=== PATIENT | male | born 1945 | race Caucasian/White ===

== ENCOUNTER 2019-11-29 08:25 | Outpatient (CLI) | payer BC, SELFPAY ==
--- NOTE | ~2019-11-29 | US_ITS ---
EXAMINATION:US venous doppler LE LT INDICATION:Left leg pain TECHNIQUE: Multiple grayscale, color flow and Doppler images of the left lower extremity deep venous systems were obtained and reviewed. COMPARISON:No prior studies for comparison. FINDINGS: The common femoral, superficial femoral and popliteal veins demonstrate normal respiratory variation, augmentation and compressibility. Color flow is also seen within the posterior tibial, pe roneal, greater saphenous and profunda veins. IMPRESSION: 1: No lower extremity deep venous thrombosis. Reviewed, dictated and finalized at location A.
[2019-11-29 09:00] LABS: Alanine Aminotransferase 14 U/L (4-50); Albumin Level 4.3 g/dL (3.5-5.1); Alkaline Phosphatase 56 U/L (38-126); Aspartate Amino Transferase 26 U/L (17-59); Bilirubin,Total 0.4 mg/dL (0.2-1.3); Blood Urea Nitrogen 16 mg/dL (9-20); Calcium 8.9 mg/dL (8.4-10.2); Carbon Dioxide 27 mmol/L (22-30); Chloride 105 mmol/L (98-107); Cholesterol 149 mg/dL (0-200); Estimated Glomerular Filt Rate > 60; Glucose 99 mg/dL (75-110); HDL Direct 38 mg/dL; Potassium 4.4 mmol/L (3.4-5.0); Sodium 139 mmol/L (137-145); Triglycerides 217 mg/dL (<150)
[2019-11-29 09:11] LABS: LDL Cholesterol Direct 73 mg/dL
[2019-11-29 09:30] LABS: Prostate Specific Antigen 0.8 ng/mL (< OR = 4.0)
== END 2019-11-29 08:26 | disposition home or self-care (01) ==
PROVIDERS: PCP Family Medicine; Visit Provider Family Medicine
DX: M79.662 Pain in left lower leg (principal); E78.00 Pure hypercholesterolemia, unspecified; Z12.5 Encounter for screening for malignant neoplasm of prostate
CPT/HCPCS: 36415; 80053; 80061; 84153; 93971; G0103

== ENCOUNTER 2019-12-01 08:05 | Outpatient (CLI) | payer BC, SELFPAY ==
--- NOTE | ~2019-12-01 | US_ITS ---
EXAMINATION: US art doppler w press LE BI DATE: 12/01/2019 09:03 INDICATION: Decreased pulses in the lower limbs. TECHNIQUE: Segmental pressures and plethysmographic and Doppler waveforms of the brachial and lower e xtremity arteries were obtained. COMPARISON: None. FINDINGS: Right and left brachial artery pressures of 160 mm Hg and 161 mm Hg, respectively, are concordant (no rmal difference <= 30 mmHg). The left high-thigh pressure index is 0.86 (normal > 1.2). The right hig h thigh pressure index is unable to be obtained due to inability to occlude the vessels. The right ankle-brachial index (ALEX) is 0.66 (normal >= 0.9-1). The right great toe-brachial index (T BI) is 0.35 (normal >= 0.6-0.8). The right lower extremity segmental pressure gradients are significa ntly increased between the right dorsalis pedis artery and the right xetel-ywm-rqhb popliteal artery (normal gradients <= 20-30 mmHg between adjacent levels on the same leg or the same levels on the two legs). Arterial waveforms are biphasic with brisk systolic upstrokes throughout. The left ALEX is 0.35. No discernible arterial Doppler signal at the left great toe. The left lower ex tremity segmental pressure gradients are increased between the left wmcgh-gvw-ukxu popliteal artery a nd the high left thigh as well as the contralateral uvvzc-bnw-hyug right popliteal artery. Arterial w aveforms are biphasic with brisk systolic upstrokes at the left common femoral artery. Waveforms in t he more distal arteries of the left lower limb are biphasic but with delayed upstrokes with broadened systolic peaks. IMPRESSION: 1. Bilateral arterial occlusive disease with moderately decreased right and severely decreased left A BIs and no discernible pulse at the left great toe. Reviewed, dictated and finalized at location A. IMPRESSION: 1. Bilateral arterial occlusive disease with moderately decreased right and sev erely decreased left ABIs and no discernible pulse at the left great toe.
== END 2019-12-01 08:06 | disposition home or self-care (01) ==
PROVIDERS: PCP Family Medicine; Visit Provider Family Medicine
DX: R09.89 Other specified symptoms and signs involving the circulatory and respiratory systems (principal); I77.9 Disorder of arteries and arterioles, unspecified
CPT/HCPCS: 93923

== ENCOUNTER 2023-01-05 09:10 | Outpatient (CLI) | payer BC, SELFPAY ==
[2023-01-05 10:20] LABS: Alanine Aminotransferase 29 U/L (6-50); Albumin Level 4.4 g/dL (3.5-5.1); Alkaline Phosphatase 55 U/L (38-126); Aspartate Amino Transferase 43 U/L (17-59); Bilirubin,Total 0.5 mg/dL (0.2-1.3)
== END 2023-01-05 09:11 | disposition home or self-care (01) ==
PROVIDERS: PCP Family Medicine
DX: B35.1 Tinea unguium (principal)
CPT/HCPCS: 36415; 80076

== ENCOUNTER 2024-11-01 07:42 | Emergency (ER) | payer BC, SELFPAY ==
--- NOTE | ~2024-11-01 | CT_ITS ---
EXAMINATION: 1. CT facial & cervical spine wo DATE: 11/01/2024 08:53 INDICATION: Fall with head injury and left periorbital bruising TECHNIQUE: 1. Computed tomography (CT) of the maxillofacial region and of the cervical spine were performed with out intravenous contrast. Sagittal and coronal reconstructions of both regions were obtained. Automat ed exposure control and iterative reconstruction technique were employed. The dose-length product was 493.76 mGy-cm. COMPARISON: None. FINDINGS: Maxillofacial CT: Mild left periorbital and preseptal soft tissue swelling consistent with reported contusion. Bilatera l globes appear intact with intraocular lens replacement. Orbits are otherwise normal with no post se ptal inflammatory thinning at the left orbit. No maxillofacial fractures. Specifically the mandible, nasal bones, zygomatic arches and banuelos of the orbits and paranasal sinuses are all intact. Paranasal sinuses, mastoid air cells and middle ear cavities are clear. There is some cerumen at the right ext ernal auditory canal. There is mild rightward bowing of the nasal septum which follows the contours o f the turbinates and is without evident acute fracture. Cervical spine CT: Straightening of the normal cervical lordosis. There is anterior fusion at C4-C6. Unfused vertebral b rika heights are normal. Moderate to severe disc height loss at C6-C7. Mild disc height loss at C2-C3, C3-C4 and C7-T1. Hypertrophic posterior endplate osteophytes contribute to mild to moderate central canal stenosis at C5-C6 and mild central canal stenosis at C4-C5 and C6-C7. Bilateral uncovertebral o steoarthritis, mild at C2-C3 and C3-C4, severe at C6-C7 and with hypertrophic changes and secondary f usion at C4-C5 and C5-C6. Severe facet osteoarthritis on the right at C2-C3, bilaterally at C7-T1 and on the left at T1-T2. Mild to moderate facet osteoarthritis at the remaining cervical levels. This c ontributes to moderate neural foraminal stenosis on the right at C5-C6 and bilaterally at C4-C5 and C 6-C7. Mild stenosis of the remaining cervical neural foramina. Atherosclerotic calcifications at the bilateral carotid bulbs. Cervical soft tissues are otherwise unremarkable. Mild to moderate emphysema at the visualized apices of the lungs. IMPRESSION: 1. No maxillofacial fracture. 2. Severe cervical spondylosis with anterior fusion at C4-C6. No acute osseous abnormality. 2. Mild to moderate emphysema at the apices of the lungs. Reviewed, dictated and finalized at location B.
--- NOTE | ~2024-11-01 | CT_ITS ---
CT head without contrast Indication: Status post fall Technique: Serial scans were obtained through the brain without the administration of contrast. Dose reduction technique was used on this scan by utilizing automated exposure control and iterative recon struction technique. The dose-length product (DLP) was 605.33 mGy-cm. Findings: There is no evidence of intracranial hemorrhage, mass lesion, or acute infarct. The ventri cles and subarachnoid spaces are dilated, consistent with mild to moderate atrophy. Low attenuation regions are seen within the periventricular white matter bilaterally, likely representing changes fro m chronic microvascular ischemic disease. There is no evidence of edema, mass effect or midline shif t. The visualized paranasal sinuses and mastoid air cells are clear. Impression: No intracranial hemorrhage, mass, or acute infarct. Atrophy and chronic white matter changes, as above. Reviewed, dictated and finalized at location M. Impression: No intracranial hemorrhage, mass, or acute infarct. Atrophy and chronic white matter changes, as above.
[2024-11-01 07:44] VITALS: BP 190/89; PULSE 93; RESP 18; O2SAT 99
--- NOTE | 2024-11-01 08:11 | ED.FALL ---
- Fall General Chief Complaint: Alcohol Stated Complaint: ETOH, falling Time Seen by Provider: 11/01/24 07:47 Source: patient Related Data Allergies Allergy/AdvReac Type Severity Reaction Status Date / Time Penicillins Allergy Unknown RASH Verified 11/01/24 08:11 Course Vital Signs Vital signs: Vital Signs Pulse Rate 93 11/01/24 07:44 Respiratory Rate 18 11/01/24 07:44 Blood Pressure 190/89 H 11/01/24 07:44 Pulse Oximetry 99 11/01/24 07:44 Oxygen Delivery Room Air 11/01/24 07:44 Pulse Rate 88 11/01/24 09:37 Respiratory Rate 13 11/01/24 09:37 Blood Pressure 137/79 11/01/24 09:37 Pulse Oximetry 97 11/01/24 09:37 Oxygen Delivery Room Air 11/01/24 07:44 MDM - Fall Lab Data 11/01/24 09:03 11/01/24 09:03 Labs: Lab Results 11/01/24 Range/Units 09:03 WBC 13.6 H (4.5-10.0) K/mm3 RBC 4.43 L (4.6-6.20) M/mm3 Hgb 12.4 L (14.0-18.0) g/dL Hct 38.8 L (42.0-52.0) % MCV 87.6 (80-100) fl MCH 28.0 (26-34) pg MCHC 32.0 (32-36) g/dl RDW 15.1 H (11.5-14.5) % Plt Count 269 (150-375) k/mm3 MPV 9.6 (7.4-10.4) fl Immature Gran % (Auto) 0.4 (0-0.5) % Neut % (Auto) 77.6 H (45.5-73.1) % Lymph % (Auto) 10.7 L (18.3-44.2) % [place] % (Auto) 10.9 H (2.6-8.5) % Eos % (Auto) 0.0 (0-4.4) % Baso % (Auto) 0.4 (0.2-1.2) % Lymph # (Auto) 1.46 (0.9-3.2) K/mm3 [place] # (Auto) 1.5 H (0.1-0.6) K/mm3 Eos # (Auto) 0.0 (0-0.3) K/mm3 Baso # (Auto) 0.1 (0.0-0.1) K/mm3 Abs Immat Gran (auto) 0.06 H (0.00-0.031) K/mm3 Absolute Neuts (auto) 10.6 H (1.3-6.7) K/mm3 Absolute Nucleated RBC 0.000 (0.0-0.012) K/mm3 Nucleated RBC % 0.0 (0.0-0.2) % PT 13.4 (11.1-14.7) Seconds INR 1.0 Sodium 139 (137-145) mmol/L Potassium 3.8 (3.4-5.0) mmol/L Chloride 99 (98-107) mmol/L Carbon Dioxide 23 (22-30) mmol/L Anion Gap 17 H (4-12) mmol/L BUN 22 H (9-20) mg/dL Creatinine 1.14 (0.7-1.3) mg/dL Estim Creat Clear Calc 45 ml/min Estimated GFR > 60 (59 - ) Glucose 106 (65-110) mg/dL Calcium 8.6 (8.4-10.2) mg/dL Total Bilirubin 0.7 (0.2-1.3) mg/dL AST 206 H (17-59) U/L ALT 96 H (6-50) U/L Alkaline Phosphatase 70 (38-126) U/L Total Protein 8.0 (6.3-8.2) g/dL Albumin 4.8 (3.5-5.1) g/dL Ethyl Alcohol 169 (<10) mg/dL Imaging Data Radiologist's impression: Impressions Head CT 11/01/24 08:58 Impression: No intracranial hemorrhage, mass, or acute infarct. Atrophy and chronic white matter changes, as above. Head/Cervical Spine/Facial Bones CT 11/01/24 09:00 IMPRESSION: 1. No maxillofacial fracture. 2. Severe cervical spondylosis with anterior fusion at C4-C6. No acute osseous abnormality. 2. Mild to moderate emphysema at the apices of the lungs. Discharge Plan Discharge Clinical Impression: Contusion of face, Closed head injury, Alcoholic, Elevated liver enzymes Patient Disposition: Home Condition: Stable Instructions: Antibiotic Form, Head Injury (DC), Abuse of Alcohol (DC), Facial Contusion (ED), Alcoholic Hepatitis (ED) Additional Instructions: Return if symptoms are worsening , call your family physician for appointment, continue home medications. Outpatient alcohol rehab at [facility] Patient Language: Japanese Follow-up/Referrals: Chato,Williams Woodard MD [Physician] -
[2024-11-01] MEDS: LORazepam INJ (*CRX) 2 MG/ML VIAL 1 MG IV PUSH (08:17)
[2024-11-01 08:24] VITALS: BP 129/93
--- NOTE | 2024-11-01 08:36 | ECG_ITS ---
Test Date: 2024-11-01 09:11:59 Measurements Intervals Golden Rate: 87 P: 61 IN: 141 QRS: -12 QRSD: 94 T: 52 QT: 358 QTc: 433 Interpretive Statements SINUS RHYTHM INCOMPLETE RIGHT BUNDLE BRANCH BLOCK BORDERLINE ECG No previous ECG available for comparison Electronically Signed On 11-01-2024 09:24:37 CDT by Dane Thompson D.O.
--- OUTSIDE RECORDS SUMMARY | 2024-11-01 09:03 | XMS_ITS | Clinical Summary ---
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 Use as directed by the office for colonoscopy prep. 255 g 7 Active Immunizations Immunization Administration Dates Next Due Covid-19, Mrna, Lnp-s, Pf, 30 Mcg/0.3 Ml Dose (P fizer) 10/18/2020,09/27/2020 Social History Tobacco Use Types Packs/Day Years Used Date Smoking Tobacco: Never Assessed Sex and Gender Information Value Date Recorded Sex Assigned at Not on file Legal Sex Male 9:46 AM CDT Gender Identity Not on file Sexual Orientation Not on file Plan of Treatment Health Maintenance Due Date Last Done Comments Hepatitis C Virus (HCV) Screening 1945 TdaP Immunization 1945 Pneumococcal Immunization (5 0+ years) (1 of 1 - PCV) 1997 Zoster Immunization (1 of 2) 1997 Respiratory Syncytial Virus (RSV) Immunization (Adult) (1 - 1-dose 75+ series) 2022 Influenza Immunization (#1) 2024 SARS-COV-2 Immunization ( season) 2024 10/18/2020, 09/27/2020 Colonoscopy High Risk Discontinued 11/15/2017 Colonoscopy Discontinued 11/15/2017 Colorectal Cancer Screening Discontinued Cologuard Discontinued Hepatitis B Immunization Aged Out No longer eligible based on patient's age to complete this topic Immunochemical Fecal Occult Blood Discontinued Meningococcal Immunization (ACWY) Aged Out No longer eligible based on patient's age to complete this topic Rotavirus Immunization Aged Out No lo nger eligible based on patient's age to complete this topic Procedures Procedure Name Priority Date/Time Associated Diagnosis Comments COLONOSCOPY Routine 11/15/2017 from Last 3 Months or Most Recently Relevant to Health Maintenance Results * COLONOSCOPY (11/15/2017) Kadeem Pena DO PROCEDURE/MINOR SURGICAL ORDERA BLES Final Result from Last 3 Months or Most Recently Relevant to Health Maintenance Insurance Care Teams Artillery Maintenance Supervisor Relationship Specialty Start Date End Date Williams Dougherty MD [address] [place] [id number] PCP - General Family Medicine 05/06/17 Kadeem Pena DO [address] [place] [id number] Consulting Physician Gastroenterology 11/15/17
--- OUTSIDE RECORDS SUMMARY | 2024-11-01 09:03 | XMS_ITS | Clinical Summary ---
Author Organization [facility] [address] Address [address] [place] [address] Care Team Providers Care Organ Pipe Finisher Name Role Phone Wellington Wong MD, Mavis Bishop Unavailable Raven Steiner MD Primary Care Provider Allergies Active Allergy Reactions Criticality Noted Date Comments Penicillin G Itching Low 12/21/2019 Medications aspirin 81 mg enteric coated tablet Take 1 tablet (81 mg total) by mouth daily 30 tablet 11 06/27/20 21 Active rOPINIRole (REQUIP) 0.25 mg tablet TAKE 1 TABLET BY MOUTH NIGHTLY FOR 2 NIGHTS, THEN INCREASE TO 1 TABLET(0.25 MG) BY MOUTH TWICE DAILY THEREAFTER 180 tablet 3 03/06/20 24 Active lansoprazole (PREVACID) 15 mg capsule TAKE 1 CAPSULE(15 MG) BY MOUTH DAILY 90 capsule 1 04/13/20 24 Active rosuvastatin (CRESTOR) 20 mg tablet Take 1 tablet (20 mg total) by mouth daily 90 tablet 1 09/13/19 25 Active rivaroxaban (XARELTO) 2.5 mg tabletIndicatio ns:Encounter for surgical aftercare following surgery on the circulatory system Take 1 tablet (2.5 mg total) by mouth 2 (two) times a day 180 tablet 3 09/15/19 25 026 Active zolpidem (AMBIEN) 5 mg tabletIndicatio ns:Sleep-Onset Insomnia Take 1 tablet (5 mg total) by mouth nightly as needed for sleep 30 tablet 2 10/19/19 25 025 Active traZODone (DESYREL) 50 mg tablet TAKE 1 TO 2 TABLETS(50 TO 100 MG) BY MOUTH EVERY NIGHT NEEDED FOR SLEEP 100 tablet 1 10/22/19 25 Active predniSONE (DELTASONE) 10 mg tablet 4 tabs x 3 days, 3 tabs x 3 days, 2 tabs x 3 days, 1 tab x 3 days 30 tablet 03/16/20 24 025 Discontinued traZODone (DESYREL) 50 mg tablet Take 1-2 tablets (50-100 mg total) by mouth nightly as needed for sleep 90 tablet 4 03/16/20 24 025 Discontinued traMADoL (ULTRAM) 50 mg tablet Take 1 tablet (50 mg total) by mouth every 6 (six) hours as needed for pain for up to 5 days 20 tablet 03/24/20 24 025 Discontinued ALPRAZolam (XANAX) 0.5 mg tablet TAKE 1 TABLET(0.5 MG) BY MOUTH EVERY NIGHT NEEDED FOR ANXIETY OR SLEEP 15 tablet 1 09/13/19 25 025 Discontinued Active Problems Problem Noted Date Diagnosed Date Atherosclerosis of [place] ar romi of left lower extremity with intermittent claudication 10/27/2024 Adjustment insomnia 10/19/2024 Alcohol use 10/19/2024 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 Right SFA stent widely patent. Left SFA stent with mild InStent stenosis, overall clinically doing well. Continue ASA, Xarelto, and statin therapy. Follow up in 6 months with repeat noninvasives testing. Assessment & Plan (03/03/2024 2:34 PM CDT): Overall stable PVD. Continue risk factor modification with ASA statin therapy. Follow up in 6 months with repeat noninvasives. Essential hypertension 11/05/2020 Hyperlipidemia 11/05/2020 Assessment & Plan (09/11/2024 10:48 AM CYBER INCIDENT HANDLER): Stable continue Crestor Assessment & Plan (03/03/2024 2:34 PM CDT): Stable continue Crestor 20 mg. Gastroesophageal reflux disease without esophagi tis 11/05/2020 Atherosclerosis of [place] ar romi of both lower extremities with intermittent claudication 12/21/2019 Overview (12/21/2019): Added automatically from request for surgery [id number] Assessment & Plan (10/27/2024 1:46 PM CDT): Current lower extremity arterial duplex 10/24/2024 shows InStent stenosis of the left SFA stent will need to have an angiogram with potential intervention. Discussed plan with the patient answered all questions at this time and discussed procedure with all of its potential risks. He is agreeable and wishes to proceed. Assessment & Plan (12/14/2023 12:41 PM CDT): Intermittent claudication to the left calf with previous interventions to both lower extremities. Denies any rest pain or ischemic ulcerations. Follow up in the next couple of weeks CTA abdomen and pelvis with iliofemoral runoff Resolved Problems Problem Noted Date Diagnosed Date Resolved Date Open wound of foot, right, sequela 06/06/2021 11/25/2021 Overview (06/06/2021): Added automatically from request for surgery [id number] Encounter for surgical after care following surgery of circulatory system 10/30/2020 11/25/2021 Encounters Date Type Department Care Team Description 10/27/2024 Documentation [facility] Vascular and Vein Surgery [address] [place] [address] Asha Cardona MA 10/25/2024 8:45 AM CDT Office Visit [facility] Vascular at [address] [place] [address] Juany Vicente NP Mixed hyperlipidemia (Primary Dx); Essential hypertension; Atherosclerosis of [place] artery of both lower extremities with intermittent claudication 10/24/2024 10:35 AM CDT - 10/24/2024 11:59 PM CDT Hospital Encounter [facility] Medical Office Building [address] [place] [address] [address] [place] [address] Atherosclerosis of [place] artery of both lower extremities with intermittent claudication Discharge Disposition: Discharge to home or self care 10/24/2024 10:35 AM CDT - 10/24/2024 11:59 PM CDT Hospital Encounter [facility] [address] [place] [address] [address] [place] [address] Atherosclerosis of [place] artery of both lower extremities with intermittent claudication; Other specified symptoms and signs involving the circulatory and respiratory systems Discharge Disposition: Discharge to home or self care 10/24/2024 10:35 AM CDT - 10/24/2024 11:59 PM CDT Hospital Encounter [facility] Building [address] [place] [address] [address] [place] [address] Atherosclerosis of [place] artery of both lower extremities with intermittent claudication Discharge Disposition: Discharge to home or self care 10/24/2024 Orders Only [facility] Vascular and Vein Surgery [address] [place] [address] [address] [place] [address] Lenka Steiner MD Atherosclerosis of [place] artery of both lower extremities with intermittent claudication (Primary Dx); Other specified symptoms and signs involving the circulatory and respiratory systems 10/18/2024 2:30 PM CDT Office Visit [facility] Primary Care [address] [place] [phone] Ce Cast NP Adjustment insomnia (Primary Dx); Alcohol use; Weight loss 10/09/2024 Telephone [facility] Primary [facility] [address] [place] [phone] Raven Steiner MD Med Refill 09/06/2024 9:30 AM CYBER INCIDENT HANDLER Office Visit [facility] Group Vascular at [address] [place] [address] Lenka Steiner MD Peripheral vascular disease (Primary Dx); Mixed hyperlipidemia 09/06/2024 Orders Only [facility] Vascular at [address] [place] [address] Lenka Steiner MD Atherosclerosis of [place] artery of both lower extremities with intermittent claudication (Primary Dx) 09/06/2024 Orders Only [facility] Vascular at [address] [place] [phone] Lenka Steiner MD Atherosclerosis of [place] artery of both lower extremities with intermittent claudication (Primary Dx) 08/30/2024 9:00 AM CYBER INCIDENT HANDLER Ancillary Procedure [facility] Vascular and Vein Surgery at [address] [address] Peripheral vascular disease; Other specified symptoms and signs involving the circulatory and respiratory systems 08/30/2024 9:00 AM CYBER INCIDENT HANDLER Ancillary Procedure [facility] Vascular and Vein Surgery at [address] [address] Atherosclerosis of [place] artery of both lower extremities with intermittent claudication 08/30/2024 8:00 AM CYBER INCIDENT HANDLER Ancillary Procedure [facility] Vascular and Vein Surgery at [address] [phone] Peripheral vascular disease from Last 3 Months Immunizations Immunization Administration Dates Next Due Influenza, Quad, Adjuvantated, Intramuscular ,06/03/2022 Influenza, Quadrivalent, Hig h Dose, Preservative Free, Intrr 05/01/2021 Influenza, Trivalent, Adjuvanted, Intramuscular 04/05/2024 Vizsafe SARS-CoV-2 Monovalent Vaccination (12+ Yrs) PURPLE 10/08/2020,09/17/2020 Pneumococcal Conjugate PCV 13 06/01/2019 Pneumococcal Polysaccharide PPV23 11/12/2020 ZOSTER Recombinant 04/05/2024,06/03/2022 Surgical History Surgery Date Site/Laterality Comments ANGIOPLASTY 12/02/2020 Left iliac stent ANGIOPLASTY 12/25/2019 - 01/23/2020 Left left common and superficial femoral angioplasty and stent, L iliac stent also COLONOSCOPY ? couple Medical History Medical History Date Comments Hypertension Hyperlipidemia GERD (gastroesophageal reflux disease) H/O angioplasty Family History Medical History Relation Name Comments Heart disease Father Asthma Mother Emphysema Sister 2 Relation Name Status Comments Father Mother Sister 1 Alive Sister 2 Social History Tobacco Use Types Packs/Day Years Used Date Smoking Tobacco: Former Cigarettes 2 30 1 973 - 1991 Smokeless Tobacco: Never Tobacco Cessation:Counseling Given: Not Answered Alcohol Use Standard Drinks/Week Comments Never 0 (1 standard drink = 0.6 oz pur e alcohol) AUDIT-C Answer Date Recorded Q1: How often do you have a drink containing alc ohol? Never 06/27/2021 Average Number of Drinks Not on file 021 Q3: How often do you have si x or more drinks on one occasion? Never 06/27/2021 PHQ-2 Answer Date Recorded PHQ-2 Total Score (If total score is 3 or more points, staff should administer the PHQ-9) 0 10/18/2024 Sex and Gender Information Value Date Recorded Sex Assigned at Not on file Legal Sex Male 10:30 AM CDT Gender Identity Not on file Sexual Orientation Not on file Obstetrics History Last Filed Vital Signs Vital Sign Reading Time Taken Comments Blood Pressure 149/92 10/25/2024 8:45 AM CDT Pulse 78 10/25/2024 8:45 AM CDT Temperature 36.7 C (98.1 F) 10/18/2024 2:02 PM CDT Respiratory Rate 18 06/27/2021 6:55 PM CYBER INCIDENT HANDLER Oxygen Saturation 96% 10/25/2024 8:45 AM CDT Inhaled Oxygen Concentration - - Weight 79.4 kg (175 lb) 10/25/2024 8:45 AM CDT Height 170.2 cm (5' 7 ) 10/25/2024 8:45 AM CDT Body Mass Index 27.41 10/25/2024 8:45 AM CDT Plan of Treatment Upcoming Encounters Date Type Department Care Team (Latest Contact Info) Description 11/02/2024 9:30 AM CDT Hospital Encounter [facility] Supervisor [address] [place] [address] Lenka Steiner MD [facility] [place] [address] Atherosclerosis of [place] artery of left lower extremity with intermittent claudication 11/02/2024 9:30 AM CDT - 11/02/2024 10:30 AM CDT Surgery [facility] Supervisor [address] [place] [address] Lenka Steiner MD [address] [place] [address] LEFT LOWER EXTREMITY ANGIOGRAM WITH POSSIBLE INTERVENTION Health Maintenance Due Date Last Done Comments DTaP/Tdap/Td Vaccine (1 - Tdap) 1956 Hepatitis B Screening 1965 Well Visit 65+ 03/11/2024 03/11/2023, 05/28/2021 Covid-19 Vaccine (4 - 2023-2 5 season) 2024 05/21/2021, 10/08/2020, 09/17/2020 Depression Screening 10/18/2025 10/18/2024, 03/16/2024, 09/20/2023, Additional history exists Fall Risk Assessment 10/18/2025 10/18/2024, 03/11/2023, 06/27/2021, Additional history exists Colon Cancer Screening-CT Colonography Discontinued 11/15/2017 Colon Cancer Screening-Colonoscopy Discontinued 11/15/2017 Colon Cancer Screening-DNA Stool Discontinued 11/16/19 Colon Cancer Screening-FIT Discontinued 11/15/2017 Colon Cancer Screening-FOBT Discontinued 11/15/2017 Colon Cancer Screening-Sigmoidoscopy Discontinued 11/15/2017 Colorectal Cancer Screening Discontinued Pneumococcal vaccine 65+ Completed 11/12/2020, 01/2019 Hepatitis C Screening Completed 03/11/2023 Abdominal Aortic Aneurysm (A AA) Screen Completed 02/23/2024, 11/01/2020, 12/21/2019, Additional history exists Influenza Vaccine Completed 04/05/2024, , 06/03/2022, Additional history exists Zoster Vaccine Completed 04/05/2024, 06/03/2022 Medical Devices Implanted Type Area Production Broacher Device Identifier Shelf Expiration Date Model / Serial / Lot [employer] Inc [id number] Zilver Ptx 6mm 100mm 125cm Otw Preload Delivery System Self - S00 - [id number] Implanted:Qty: 1 on 12/29/2019 by Mavis Paris Jr., MD at [facility] Stent Left: Femoral [employer] - [employer] [id number] 08/01/2021 [id number] / 00 / [id number] [employer] Syed [id number] Express Ld Tandem Architecture 7mm 57mm 75cm Otw Radiopaque - S00 - [id number] Implanted:Qty: 1 on 12/29/2019 by Mavis Paris Jr., MD at [facility] Stent Left: Femoral [place] [employer] Syed [id number] 07/13/2021 [id number] / 00 / [id number] Medtronic Inc [id number] Everflex 8mm 60mm 80cm 3 Wave Peak Self Expand Flexible Spiral - [id number] Implanted:Qty: 1 on 12/02/2020 by Abhilash Hernandez MD at [facility] Stent Left: Iliac Medtronic Inc 08/09/2022 [id number] / / [id number] Description:Left external il iac Medtronic Inc Everflex Entrust 6mm 120mm 120cm Self Expand Triaxial Low Profile - [id number] Implanted:Qty: 1 on 06/27/2021 by Abhilash Hernandez MD at [facility] Stent Medtronic Inc 09/05/2023 [id number] 120-120 / / [id number] Procedures Procedure Name Priority Date/Time Associated Diagnosis Comments US DUPLEX SCAN AORTA, IVC ILIAC LIMITED Schedule Routine, Read Routine (OP Routine) 10/24/2024 3:12 PM CDT Atherosclerosis of [place] artery of both lower extremities with intermittent claudication Other specified symptoms and signs involving the circulatory and respiratory systems US ARTERIAL DUPLEX LOWER EXTREMITY LEFT LIMITED Schedule Routine, Read Routine (OP Routine) 10/24/2024 1:19 PM CDT Atherosclerosis of [place] artery of both lower extremities with intermittent claudication US ALEX Schedule Routine, Read Routine (OP Routine) 10/24/2024 1:09 PM CDT Atherosclerosis of [place] artery of both lower extremities with intermittent claudication US DUPLEX SCAN AORTA, IVC ILIAC COMPLETE Schedule Routine, Read Routine (OP Routine) 08/30/2024 9:38 AM CYBER INCIDENT HANDLER Peripheral vascular disease Other specified symptoms and signs involving the circulatory and respiratory systems VL US ARTERIAL DUPLEX LOWER EXTREMITY BILATERAL Schedule Routine, Read Routine (OP Routine) 08/30/2024 9:37 AM CYBER INCIDENT HANDLER Peripheral vascular disease US ALEX Schedule Routine, Read Routine (OP Routine) 08/30/2024 9:11 AM CYBER INCIDENT HANDLER Atherosclerosis of [place] artery of both lower extremities with intermittent claudication CTA ABDOMINAL AORTA AND BILATERAL ILIOFEMORAL RUNOFF Schedule Routine, Read Routine (OP Routine) 02/23/2024 9:08 AM CDT Atherosclerosis of [place] artery of both lower extremities with intermittent claudication HEPATITIS C ANTIBODY Routine 03/11/2023 2:01 PM CDT Need for hepatitis C screening test COLONOSCOPY Routine 11/15/2017 from Last 3 Months or Most Recently Relevant to Health Maintenance Results * US Duplex Scan Aorta, IVC Iliac Limited (10/24/2024 3:12 PM CDT) Anatomical Region Laterality Modality Vascular N/A Ultrasound 10/24/2024 11:5 3 AM CDT Narrative 10/25/2024 8:20 AM CDT Abdominal Aortic Duplex Ultrasound Report Patient Name: MAVIS ZIEGLER J : 1945 Study Date: 10/24/2024 11:53:04 AM Gender: M Mid Level Project Manager: Miguelina Burnette Provider: LENKA STEINER Quality: Adequate Order Provider: LENKA STEINER PROCEDURES: Arterial Report: Duplex ultrasound imaging of the abdominal aorta. INDICATIONS: *Increasing LLE Claudication. HISTORY: 12-29-2019 BA/Stent Left CARLIE and EIA 12-12-2020 BA/Stent Left EIA Previous Smoker, LLE Claudication, PVD. COMPARISONS: The previous exam was completed on 08-30-2024. MEASUREMENTS: Velocities Value Aorta Dst PSV 82.00 cm/sec STENTS: Velocities Value Location Left CARLIE Stent Prx PSV 105.00 cm/sec Stent Mid PSV 177.00 cm/sec Stent Dst PSV 147.00 cm/sec Location 2 Left EIA Stent 2 Prx PSV 205.00 cm/sec Stent 2 Mid PSV 156.00 cm/sec Stent 2 Dst PSV 147.00 cm/sec MEASUREMENTS: FINDINGS: Study Quality: Adequate. Stent attachments not well visualized. CONCLUSIONS: 1. Findings suggest continued patency of the previously placed stent. ATTESTATION: I have reviewed and interpreted the pertinent images and measurements of this study. I attest to the conclusions in the final report that is provided above. Electronically Signed By: Juan M Steiner MD 10/25/2024 8:19:31 AM CDT Procedure Note Juan M Steiner MD - 10/25/2024 Abdominal Aortic Duplex Ultrasound Report Patient Name: MAVIS ZIEGLER J : 1945 Study Date: 10/24/2024 11:53:04 AM Gender: M Mid Level Project Manager: Miguelina Burnette Provider: LENKA STEINER Quality: Adequate Order Provider: LENKA STEINER PROCEDURES: Arterial Report: Duplex ultrasound imaging of the abdominal aorta. INDICATIONS: *Increasing LLE Claudication. HISTORY: 12-29-2019 BA/Stent Left CARLIE and EIA 12-12-2020 BA/Stent Left EIA Previous Smoker, LLE Claudication, PVD. COMPARISONS: The previous exam was completed on 08-30-2024. MEASUREMENTS: Velocities Value Aorta Dst PSV 82.00 cm/sec STENTS: Velocities Value Location Left CARLIE Stent Prx PSV 105.00 cm/sec Stent Mid PSV 177.00 cm/sec Stent Dst PSV 147.00 cm/sec Location 2 Left EIA Stent 2 Prx PSV 205.00 cm/sec Stent 2 Mid PSV 156.00 cm/sec Stent 2 Dst PSV 147.00 cm/sec MEASUREMENTS: FINDINGS: Study Quality: Adequate. Stent attachments not well visualized. CONCLUSIONS: 1. Findings suggest continued patency of the previously placed stent. ATTESTATION: I have reviewed and interpreted the pertinent images and measurements ofthis study. I attest to the conclusions in the final report that is provided above. Electronically Signed By: Juan M Steiner MD 10/25/2024 8:19:31 AM CDT us Lenka Steiner MD IM US PROCEDURES Final Result * US Arterial Duplex Lower Extremity Left Limited (10/24/2024 1:19 PM CDT) Anatomical Region Laterality Modality Vascular Left Ultrasound 10/24/2024 11:3 2 AM CDT Narrative 10/25/2024 8:19 AM CDT Lower Extremity Arterial Duplex Report Patient Name: MAVIS ZIEGLER J : 1945 (79y 4m) Gender: M Study Date: 10/24/2024 11:32:17 AM Ht(Inch): Wt(Lb): BSA: Mid Level Project Manager: Miguelina Burnette Provider: LENKA STEINER Quality: Adequate Ref Provider: LENKA STEINER PROCEDURES: Arterial Report: A non-invasive vascular imaging study of the left lower extremity arteries was performed using B-mode ultrasound, color flow, and spectral Doppler. A non-invasive vascular imaging study of the left lower extremity arteries and stent was performed using B-mode ultrasound, color flow, and spectral Doppler. INDICATIONS: I70.213 Atherosclerosis of [place] arteries of extremities with intermittent claudication, bilateral legs. HISTORY: 12-29-2019: s/p left BA/Stent SFA, BA/Stent left CARLIE and EIA 12-02-2020: s/p Left EIA angioplasty and stenting Previous Smoker, PVD, Increasing LLE Claudication. COMPARISONS: The previous exam was completed on 08-30-2024. MEASUREMENTS: Left Value Lt REGULATION SUPERVISOR Prx PSV 201.00 cm/sec Lt Profunda Prx PSV 235.00 cm/sec Lt SFA Prx PSV 67.00 cm/sec Lt SFA Mid PSV 120.00 cm/sec Lt SFA Dst PSV 92.00 cm/sec Lt Pop Prx PSV 86.00 cm/sec Lt Pop Dst PSV 65.00 cm/sec Lt TP Trunk PSV 181.00 cm/s Lt Ant Tibial Prx PSV 30 where seen cm/sec Lt Post Tibial Mid PSV 88.00 cm/sec Lt Peroneal Mid PSV 49.00 cm/sec STENTS: Left Value Location Left SFA Mid to SFA Distal Lt Stent Prx Attachment PSV 103.00 cm/sec Lt Stent Prx PSV 440.00 cm/sec Lt Stent Mid PSV 122.00 cm/sec Lt Stent Dst PSV 93.00 cm/sec Lt Stent Dst Attachment PSV 83.00 cm/sec FINDINGS: Left: Increased velocities noted of the left tibeoperoneal trunk. Stent 1: The stent is located in the Left Mid to Distal SFA. Increased velocities at the proximal portion of the stent. CONCLUSION: 1. There is severe stenosis of the arterial stent with velocities consistent with greater than 75%. ATTESTATION: I have reviewed and interpreted the pertinent images and measurements of this study. I attest to the conclusions in the final report that is provided above. Electronically Signed By: Juan M Steiner MD 10/25/2024 8:18:39 AM CDT Procedure Note Juan M Steiner MD - 10/25/2024 Lower Extremity Arterial Duplex Report Patient Name: MAVIS ZIEGLER J : 1945 (79y 4m) Gender: M Study Date: 10/24/2024 11:32:17 AM Ht(Inch): Wt(Lb): BSA: Mid Level Project Manager: Miguelina Burnette Provider: LENKA STEINER Quality: Adequate Ref Provider: LENKA STEINER PROCEDURES: Arterial Report: A non-invasive vascular imaging study of the left lowerextremity arteries was performed using B-mode ultrasound, color flow, and spectralDoppler. A non-invasive vascular imaging study of the left lower extremity arteriesand stent was performed using B-mode ultrasound, color flow, and spectral Doppler. INDICATIONS: I70.213 Atherosclerosis of [place] arteries of extremities withintermittent claudication, bilateral legs. HISTORY: 12-29-2019: s/p left BA/Stent SFA, BA/Stent left CARLIE and EIA 12-02-2020: s/p Left EIA angioplasty and stenting Previous Smoker, PVD, Increasing LLE Claudication. COMPARISONS: The previous exam was completed on 08-30-2024. MEASUREMENTS: Left Value Lt REGULATION SUPERVISOR Prx PSV 201.00 cm/sec Lt Profunda Prx PSV 235.00 cm/sec Lt SFA Prx PSV 67.00 cm/sec Lt SFA Mid PSV 120.00 cm/sec Lt SFA Dst PSV 92.00 cm/sec Lt Pop Prx PSV 86.00 cm/sec Lt Pop Dst PSV 65.00 cm/sec Lt TP Trunk PSV 181.00 cm/s Lt Ant Tibial Prx PSV 30 where seen cm/sec Lt Post Tibial Mid PSV 88.00 cm/sec Lt Peroneal Mid PSV 49.00 cm/sec STENTS: Left Value Location Left SFA Mid to SFA Distal Lt Stent Prx Attachment PSV 103.00 cm/sec Lt Stent Prx PSV 440.00 cm/sec Lt Stent Mid PSV 122.00 cm/sec Lt Stent Dst PSV 93.00 cm/sec Lt Stent Dst Attachment PSV 83.00 cm/sec FINDINGS: Left: Increased velocities noted of the left tibeoperoneal trunk. Stent 1: The stent is located in the Left Mid to Distal SFA. Increasedvelocities at the proximal portion of the stent. CONCLUSION: 1. There is severe stenosis of the arterial stent with velocitiesconsistent with greater than 75%. ATTESTATION: I have reviewed and interpreted the pertinent images and measurements ofthis study. I attest to the conclusions in the final report that is provided above. Electronically Signed By: Juan M Steiner MD 10/25/2024 8:18:39 AM CDT us Lenka Steiner MD IMG US PROCEDURES Final Result * US ALEX (10/24/2024 1:09 PM CDT) Anatomical Region Laterality Modality Vascular N/A Ultrasound 10/24/2024 11:1 5 AM CDT Narrative 10/25/2024 8:19 AM CDT Lower Extremity Arterial Doppler Report Patient Name: MAVIS ZIEGLER J : 1945 Study Date: 10/24/2024 11:15:00 AM Gender: M Mid Level Project Manager: Miguelina Burnette RDMS, RVT Ref Provider: LENKA STEINER Quality: Adequate Order Provider: LENKA STEINER PROCEDURES: Arterial Report: Ankle - Brachial Index Doppler exam. INDICATIONS: Increasing LLE claudication, Peripheral Vascular Disease, Unspecified, and Atherosclerosis of [place] Arteries of Extremities with Intermittent Claudication, Bilateral Leg. HISTORY: Previous Smoker, LLE claudication, PVD 06-27-2021: s/p BA/Stent Right SFA 12-02-2020: s/p BA/Stent Left EIA 12-29-2019: s/p BA/Stent Left SFA, BA/Stent Left CARLIE and EIA - COMPARISONS: The previous exam was completed on 08-30-2024. Previous ALEX: Rt=0.96 Lt=0.86. MEASUREMENTS: Right Value Left Value Rt Brachial Pressure 184 mmHg Lt Brachial Pressure 176 mmHg Rt INSURANCE LICENSING SUPERVISOR Pressure 181 mmHg Lt INSURANCE LICENSING SUPERVISOR Pressure 152 mmHg Rt DPA Pressure 166 mmHg Lt DPA Pressure 150 mmHg Rt 1st Digit Pressure 105 mmHg Lt 1st Digit Pressure 63 mmHg Rt PT ALEX Resting 0.98 Lt PT ALEX Resting 0.83 Rt DP ALEX Resting 0.9 Lt DP ALEX Resting 0.82 Rt Digit 1/Arm Index 0.57 Lt Digit 1/Arm Index 0.34 FINDINGS: Right Posterior Tibial Artery Analysis: The posterior tibial waveform is multiphasic. Right Dorsalis Pedis Artery Analysis: The dorsalis pedis waveform is multiphasic. Right Digits: Normal right digit pressure and waveform. Left Posterior Tibial Artery Analysis: The posterior tibial waveform is multiphasic. Left Dorsalis Pedis Artery Analysis: The dorsalis pedis waveform is monophasic. Left Digits: The left digit waveform is dampened. - CONCLUSIONS: 1. Right ankle-brachial index of 0.98. 2. Left ankle-brachial index of 0.83. 3. Ankle-brachial index of 0.9-1.3 is within normal limits in the right lower extremity. 4. Ankle-brachial index of 0.8-0.9 is consistent with mild occlusive arterial disease in the left lower extremity. ATTESTATION: I have reviewed and interpreted the pertinent images and measurements of this study. I attest to the conclusions in the final report that is provided above. Electronically Signed By: Juan M Steiner MD 10/25/2024 8:17:34 AM CDT Procedure Note Juan M Steiner MD - 10/25/2024 Lower Extremity Arterial Doppler Report Patient Name: MAVIS ZIEGLER J : 1945 Study Date: 10/24/2024 11:15:00 AM Gender: M Mid Level Project Manager: Miguelina Burnette RDMS, RVT Ref Provider: LENKA STEINER Quality: Adequate Order Provider: LENKA STEINER PROCEDURES: Arterial Report: Ankle - Brachial Index Doppler exam. 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 HISTORY: Previous Smoker, LLE claudication, PVD 06-27-2021: s/p BA/Stent Right SFA 12-02-2020: s/p BA/Stent Left EIA 12-29-2019: s/p BA/Stent Left SFA, BA/Stent Left CARLIE and EIA - COMPARISONS: The previous exam was completed on 08-30-2024. Previous ALEX: Rt=0.96 Lt=0.86. MEASUREMENTS: Right Value Left Value Rt Brachial Pressure 184 mmHg Lt Brachial Pressure 176 mmHg Rt INSURANCE LICENSING SUPERVISOR Pressure 181 mmHg Lt INSURANCE LICENSING SUPERVISOR Pressure 152 mmHg Rt DPA Pressure 166 mmHg Lt DPA Pressure 150 mmHg Rt 1st Digit Pressure 105 mmHg Lt 1st Digit Pressure 63 mmHg Rt PT ALEX Resting 0.98 Lt PT ALEX Resting 0.83 Rt DP ALEX Resting 0.9 Lt DP ALEX Resting 0.82 Rt Digit 1/Arm Index 0.57 Lt Digit 1/Arm Index 0.34 FINDINGS: Right Posterior Tibial Artery Analysis: The posterior tibial waveform is multiphasic. Right Dorsalis Pedis Artery Analysis: The dorsalis pedis waveform is multiphasic. Right Digits: Normal right digit pressure and waveform. Left Posterior Tibial Artery Analysis: The posterior tibial waveform is multiphasic. Left Dorsalis Pedis Artery Analysis: The dorsalis pedis waveform is monophasic. Left Digits: The left digit waveform is dampened. - CONCLUSIONS: 1. Right ankle-brachial index of 0.98. 2. Left ankle-brachial index of 0.83. 3. Ankle-brachial index of 0.9-1.3 is within normal limits in the rightlower extremity. 4. Ankle-brachial index of 0.8-0.9 is consistent with mild occlusivearterial disease in the left lower extremity. ATTESTATION: I have reviewed and interpreted the pertinent images and measurements ofthis study. I attest to the conclusions in the final report that is provided above. Electronically Signed By: Juan M Steiner MD 10/25/2024 8:17:34 AM CDT us Lenka Steiner MD IMG US PROCEDURES Final Result * US Duplex Scan Aorta, IVC Iliac Complete (08/30/2024 9:38 AM CYBER INCIDENT HANDLER) LV EF % CONS SCIMAGE Anatomical Region Laterality Modality Vascular N/A Ultrasound 08/30/2024 8:08 AM CYBER INCIDENT HANDLER Narrative 09/01/2024 11:56 AM CYBER INCIDENT HANDLER [facility] [address] [place] [id number] Abdominal Aortic Duplex Ultrasound Report Patient Name: MAVIS ZIEGLER J : 1945 Study Date: 08/30/2024 8:08:53 AM Gender: M Mid Level Project Manager: Location: [facility] Ref Provider: LENKA STEINER Quality: Adequate Order Provider: LENKA STEINER PROCEDURES: Arterial Report: Abdominal Aorta Stent Graft Duplex. INDICATIONS: Remote hx: S/P litho/stent Rt SFA; stents LCIA/EIA, Lt SFA. HISTORY: Hyperlipidemia. Former smoker. COMPARISONS: Prior CTA 02/23/24 - MEASUREMENTS: Velocities Value Diameters Value Aorta Prx PSV 47.00 cm/sec Aorta Prx AP Dim 2.26 cm Aorta Mid PSV 74.00 cm/sec Aorta Prx Trans Dim 2.35 cm Aorta Dst PSV 79.00 cm/sec Aorta Mid AP Dim 2.18 cm Rt Com Iliac Prx PSV 71.00 cm/sec Aorta Mid Trans Dim 1.97 cm Rt Com Iliac Dst PSV 214.00 cm/sec Aorta Dst AP Dim 2.22 cm Rt Ext Iliac Prx PSV 199.00 cm/sec Aorta Dst Trans Dim 2.09 cm Rt Ext Iliac Dst PSV 216.00 cm/sec Rt Com Iliac Prx AP Dim 0.95 cm Rt Com Iliac Prx Trans Dim 0.99 cm Lt Com Iliac Prx AP Dim 1.12 cm Lt Com Iliac Prx Trans Dim 1.04 cm - STENTS: Velocities Value Location LCIA/EIA Stent Prx PSV 119.00 cm/sec Stent Mid PSV 144.00 cm/sec Stent Dst PSV 141.00 cm/sec Stent Jackson Outflow PSV 135.00 cm/sec - MEASUREMENTS: FINDINGS: Study Quality: Adequate. Abdominal Aorta: Normal diameter. Atherosclerotic plaque noted. Elevated PSV 214 cm/s noted at right common iliac artery, 216 cm/s noted at right external iliac artery. Patent left common/external iliac stent with normal velocity. CONCLUSIONS: 1. Findings suggest 50-75% stenosis of the Right Common Iliac Artery. 2. Left common iliac and external iliac artery stent is patent. ATTESTATION: I have reviewed and interpreted the pertinent images and measurements of this study. I attest to the conclusions in the final report that is provided above. Electronically Signed By: Lenka Steiner MD 09/01/2024 11:54:52 AM CYBER INCIDENT HANDLER Procedure Note Lenka Steiner MD - 09/01/2024 [facility] [address] [place] [address] Abdominal Aortic Duplex Ultrasound Report Patient Name: MAVIS ZIEGLER J : 1945 Study Date: 08/30/2024 8:08:53 AM Gender: M Mid Level Project Manager: Location: [facility] Ref Provider: LENKA STEINER Quality: Adequate Order Provider: LENKA STEINER PROCEDURES: Arterial Report: Abdominal Aorta Stent Graft Duplex. INDICATIONS: Remote hx: S/P litho/stent Rt SFA; stents LCIA/EIA, Lt SFA. HISTORY: Hyperlipidemia. Former smoker. COMPARISONS: Prior CTA 02/23/24 - MEASUREMENTS: Velocities Value DiametersValue Aorta Prx PSV 47.00 cm/sec Aorta Prx AP Dim2.26 cm Aorta Mid PSV 74.00 cm/sec Aorta Prx Trans Dim2.35 cm Aorta Dst PSV 79.00 cm/sec Aorta Mid AP Dim2.18 cm Rt Com Iliac Prx PSV 71.00 cm/sec Aorta Mid Trans Dim1.97 cm Rt Com Iliac Dst PSV 214.00 cm/sec Aorta Dst AP Dim2.22 cm Rt Ext Iliac Prx PSV 199.00 cm/sec Aorta Dst Trans Dim2.09 cm Rt Ext Iliac Dst PSV 216.00 cm/sec Rt Com Iliac Prx AP Dim0.95 cm Rt Com Iliac Prx Trans Dim 0.99 cm Lt Com Iliac Prx AP Dim 1.12 cm Lt Com Iliac Prx Trans Dim 1.04 cm - STENTS: Velocities Value Location LCIA/EIA Stent Prx PSV 119.00 cm/sec Stent Mid PSV 144.00 cm/sec Stent Dst PSV 141.00 cm/sec Stent Jackson Outflow PSV 135.00 cm/sec - MEASUREMENTS: FINDINGS: Study Quality: Adequate. Abdominal Aorta: Normal diameter. Atherosclerotic plaque noted. Elevated PSV 214 cm/s notedat right common iliac artery, 216 cm/s noted at right external iliac artery. Patentleft common/external iliac stent with normal velocity. CONCLUSIONS: 1. Findings suggest 50-75% stenosis of the Right Common Iliac Artery. 2. Left common iliac and external iliac artery stent is patent. ATTESTATION: I have reviewed and interpreted the pertinent images and measurements ofthis study. I attest to the conclusions in the final report that is provided above. Electronically Signed By: Lenka Steiner MD 09/01/2024 11:54:52 AM CYBER INCIDENT HANDLER Lenka Steiner MD IM US PROCEDURES Final Result * US Arterial Duplex Lower Extremity Bilateral (08/30/2024 9:37 AM CYBER INCIDENT HANDLER) LV EF % CONS SCIMAGE Anatomical Region Laterality Modality Vascular Bilateral Ultrasound 08/30/2024 8:42 AM CYBER INCIDENT HANDLER Narrative 09/01/2024 9:30 AM CYBER INCIDENT HANDLER [facility] [address] [facility] [place] [address] Lower Extremity Arterial Duplex Report Patient Name: MAVIS ZIEGLER J : 1945 (79y 2m) Gender: M Study Date: 08/30/2024 08:42:15 AM Ht(Inch): Wt(Lb): BSA: Mid Level Project Manager: SANJAY Location: [facility] Order Provider: LENKA STEINER Quality: Adequate Ref Provider: LENKA STEINER PROCEDURES: Arterial Report: A non-invasive vascular imaging study of the bilateral lower extremity arteries and stents was performed using B-mode ultrasound, color flow, and spectral Doppler. INDICATIONS: Remote hx: S/P litho/stent Rt SFA 06/27/21; stents LCIA/EIA, Lt SFA. HISTORY: Hyperlipidemia. Former smoker. COMPARISONS: The previous exam was completed on 05/07/23. MEASUREMENTS: Right Value Left Value Rt REGULATION SUPERVISOR Dst PSV 182.00 cm/sec Lt REGULATION SUPERVISOR Dst PSV 136.00 cm/sec Rt Profunda Prx PSV 96.00 cm/sec Lt Profunda Prx PSV 126.00 cm/sec Rt SFA Prx PSV 114.00 cm/sec Lt SFA Prx PSV 155.00 cm/sec Rt SFA Dst PSV 52.00 cm/sec Lt SFA Mid PSV 65.00 cm/sec Rt Pop Prx PSV 85.00 cm/sec Lt SFA Dst PSV 69.00 cm/sec Rt Pop Dst PSV 71.00 cm/sec Lt Pop Prx PSV 74.00 cm/sec Rt TP Trunk PSV 76.00 cm/s Lt Pop Dst PSV 45.00 cm/sec Rt Ant Tibial Prx PSV 38.00 cm/sec Lt TP Trunk PSV 130.00 cm/s Rt Post Tibial Prx PSV 95.00 cm/sec Lt Ant Tibial Prx PSV 93.00 cm/sec Rt Post Tibial Mid PSV 69.00 cm/sec Lt Post Tibial Prx PSV 66.00 cm/sec Rt Peroneal Prx PSV 34.00 cm/sec Lt Post Tibial Mid PSV 55.00 cm/sec Rt Peroneal Mid PSV 52.00 cm/sec Lt Peroneal Prx PSV 43.00 cm/sec Lt Peroneal Mid PSV 34.00 cm/sec - STENTS: Right Value Left Value Location Rt SFA Location Lt SFA Rt Stent Prx Jackson PSV 81.00 cm/sec Lt Stent Prx Jackson PSV 83.00 cm/sec Rt Stent Prx PSV 98.00 cm/sec Lt Stent Prx PSV 370.00 cm/sec Rt Stent Mid PSV 80.00 cm/sec Lt Stent Mid PSV 93.00 cm/sec Rt Stent Dst PSV 67.00 cm/sec Lt Stent Dst PSV 76.00 cm/sec Rt Stent Dst Jackson PSV 65.00 cm/sec Lt Stent Dst Jackson PSV 69.00 cm/sec - FINDINGS: Right: Biphasic arteries include the right common femoral artery, profunda femoral artery, proximal superficial femoral artery, distal superficial femoral artery, popliteal artery, tibeoperoneal trunk, anterior tibial artery, posterior tibial artery and peroneal artery. Normal velocities noted of the right common femoral artery, profunda femoral artery, proximal superficial femoral artery, mid superficial femoral artery, distal superficial femoral artery, popliteal artery, tibeoperoneal trunk, anterior tibial artery, posterior tibial artery and peroneal artery. Left: Biphasic arteries include the left common femoral artery, profunda femoral artery, proximal superficial femoral artery, mid superficial femoral artery, distal superficial femoral artery, popliteal artery, tibeoperoneal trunk, posterior tibial artery proximal and peroneal artery proximal. Monophasic arteries include the left anterior tibial artery, posterior tibial artery mid and peroneal artery mid. Normal velocities noted of the left common femoral artery, profunda femoral artery, proximal superficial femoral artery, distal superficial femoral artery, popliteal artery, tibeoperoneal trunk, anterior tibial artery, posterior tibial artery and peroneal artery. Stent 1: The stent is located in the right superficial femoral artery. Patent lower extremity stent with no evidence of stenosis. Stent 2: The stent is located in the left superficial femoral artery. Increased velocities at the proximal portion of the stent, with max PSV 370 cm/s, ratio 4.4. CONCLUSION: 1. The stent is located in the right superficial femoral artery. Patent lower extremity stent with no evidence of stenosis. 2. Left superficial femoral artery stent with evidence of InStent stenosis. ATTESTATION: I have reviewed and interpreted the pertinent images and measurements of this study. I attest to the conclusions in the final report that is provided above. Electronically Signed By: Lenka Steiner MD 09/01/2024 9:29:19 AM CYBER INCIDENT HANDLER Procedure Note Lenka Steiner MD - 09/01/2024 [facility] [address] [place] [id number] Lower Extremity Arterial Duplex Report Patient Name: MAVIS ZIEGLER J : 1945 (79y 2m) Gender: M Study Date: 08/30/2024 08:42:15 AM Ht(Inch): Wt(Lb): BSA: Mid Level Project Manager: SANJAY Location: [facility] Order Provider: LENKA STEINER Quality: Adequate Ref Provider: LENKA STEINER PROCEDURES: Arterial Report: A non-invasive vascular imaging study of the bilaterallower extremity arteries and stents was performed using B-mode ultrasound, color flow, andspectral Doppler. INDICATIONS: Remote hx: S/P litho/stent Rt SFA 06/27/21; stents LCIA/EIA, Lt SFA. HISTORY: Hyperlipidemia. Former smoker. COMPARISONS: The previous exam was completed on 05/07/23. MEASUREMENTS: Right Value LeftValue Rt REGULATION SUPERVISOR Dst PSV 182.00 cm/sec Lt REGULATION SUPERVISOR Dst PIK117.00 cm/sec Rt Profunda Prx PSV 96.00 cm/sec Lt Profunda Prx ZED786.00 cm/sec Rt SFA Prx PSV 114.00 cm/sec Lt SFA Prx ACF191.00 cm/sec Rt SFA Dst PSV 52.00 cm/sec Lt SFA Mid PSV 65.00cm/sec Rt Pop Prx PSV 85.00 cm/sec Lt SFA Dst PSV 69.00cm/sec Rt Pop Dst PSV 71.00 cm/sec Lt Pop Prx PSV 74.00cm/sec Rt TP Trunk PSV 76.00 cm/s Lt Pop Dst PSV 45.00cm/sec Rt Ant Tibial Prx PSV 38.00 cm/sec Lt TP Trunk CQJ869.00 cm/s Rt Post Tibial Prx PSV 95.00 cm/sec Lt Ant Tibial Prx PSV 93.00cm/sec Rt Post Tibial Mid PSV 69.00 cm/sec Lt Post Tibial Prx PSV 66.00cm/sec Rt Peroneal Prx PSV 34.00 cm/sec Lt Post Tibial Mid PSV 55.00cm/sec Rt Peroneal Mid PSV 52.00 cm/sec Lt Peroneal Prx PSV 43.00cm/sec Lt Peroneal Mid PSV 34.00 cm/sec - STENTS: Right Value LeftValue Location Rt SFA Location LtSFA Rt Stent Prx Jackson PSV 81.00 cm/sec Lt Stent Prx Jackson PSV83.00 cm/sec Rt Stent Prx PSV 98.00 cm/sec Lt Stent Prx KKJ392.00 cm/sec Rt Stent Mid PSV 80.00 cm/sec Lt Stent Mid PSV93.00 cm/sec Rt Stent Dst PSV 67.00 cm/sec Lt Stent Dst PSV76.00 cm/sec Rt Stent Dst Jackson PSV 65.00 cm/sec Lt Stent Dst Jackson PSV69.00 cm/sec - FINDINGS: Right: Biphasic arteries include the right common femoral artery, profundafemoral artery, proximal superficial femoral artery, distal superficial femoralartery, popliteal artery, tibeoperoneal trunk, anterior tibial artery, posterior tibialartery and peroneal artery. Normal velocities noted of the right common femoral artery,profunda femoral artery, proximal superficial femoral artery, mid superficial femoralartery, distal superficial femoral artery, popliteal artery, tibeoperoneal trunk,anterior tibial artery, posterior tibial artery and peroneal artery. Left: Biphasic arteries include the left common femoral artery, profundafemoral artery, proximal superficial femoral artery, mid superficial femoral artery,distal superficial femoral artery, popliteal artery, tibeoperoneal trunk, posterior tibialartery proximal and peroneal artery proximal. Monophasic arteries include the leftanterior tibial artery, posterior tibial artery mid and peroneal artery mid. Normalvelocities noted of the left common femoral artery, profunda femoral artery, proximalsuperficial femoral artery, distal superficial femoral artery, popliteal artery, tibeoperonealtrunk, anterior tibial artery, posterior tibial artery and peroneal artery. Stent 1: The stent is located in the right superficial femoral artery.Patent lower extremity stent with no evidence of stenosis. Stent 2: The stent is located in the left superficial femoral artery.Increased velocities at the proximal portion of the stent, with max PSV 370 cm/s,ratio 4.4. CONCLUSION: 1. The stent is located in the right superficial femoral artery. Patentlower extremity stent with no evidence of stenosis. 2. Left superficial femoral artery stent with evidence of InStentstenosis. ATTESTATION: I have reviewed and interpreted the pertinent images and measurements ofthis study. I attest to the conclusions in the final report that is provided above. Electronically Signed By: Lenka Steiner MD 09/01/2024 9:29:19 AM CYBER INCIDENT HANDLER us Lenka Steiner MD IMG US PROCEDURES Final Result * US ALEX (08/30/2024 9:11 AM CYBER INCIDENT HANDLER) LV EF % CONS SCIMAGE Anatomical Region Laterality Modality Vascular N/A Ultrasound 08/30/2024 7:55 AM CYBER INCIDENT HANDLER Narrative 09/01/2024 9:24 AM CYBER INCIDENT HANDLER [facility] [address] [place] [address] Lower Extremity Arterial Doppler Report Patient Name: MAVIS ZIEGLER J : 1945 Study Date: 08/30/2024 7:55:00 AM Gender: M Mid Level Project Manager: Vale Ott Felipe Location: [facility] Ref Provider: LENKA STEINER Quality: Adequate Order Provider: LENKA STEINER PROCEDURES: Arterial Report: Ankle - Brachial Index Doppler exam. INDICATIONS: Remote hx: S/P litho/stent Rt SFA 06/27/21; stents LCIA/EIA, Lt SFA. HISTORY: Hyperlipidemia. Former smoker. COMPARISONS: The previous exam was completed on 05/07/23. Compared to prior there is no significant change on the right, mild disease progression on the left. MEASUREMENTS: Right Value Left Value Rt Brachial Pressure 189 mmHg Lt Brachial Pressure 180 mmHg Rt INSURANCE LICENSING SUPERVISOR Pressure 180 mmHg Lt INSURANCE LICENSING SUPERVISOR Pressure 162 mmHg Rt DPA Pressure 181 mmHg Lt DPA Pressure 145 mmHg Rt PT ALEX Resting 0.95 Lt PT ALEX Resting 0.86 Rt DP ALEX Resting 0.96 Lt DP ALEX Resting 0.77 - FINDINGS: Right Posterior Tibial Artery Analysis: The posterior tibial waveform is triphasic. Right Anterior Tibial Artery Analysis: The anterior tibial waveform is triphasic. Left Posterior Tibial Artery Analysis: The posterior tibial waveform is triphasic. Left Anterior Tibial Artery Analysis: The anterior tibial waveform is biphasic. CONCLUSIONS: 1. Ankle-brachial index of 0.9-1.3 is within normal limits in the right lower extremity. 2. Ankle-brachial index of 0.8-0.9 is consistent with mild occlusive arterial disease in the left lower extremity. ATTESTATION: I have reviewed and interpreted the pertinent images and measurements of this study. I attest to the conclusions in the final report that is provided above. Electronically Signed By: Lenka Steiner MD 09/01/2024 9:23:09 AM CYBER INCIDENT HANDLER Procedure Note Lenka Steiner MD - 09/01/2024 [facility] [facility] [place] [address] Lower Extremity Arterial Doppler Report Patient Name: MAVIS ZIEGLER J : 1945 Study Date: 08/30/2024 7:55:00 AM Gender: M Mid Level Project Manager: Vale Ott RVT Location: [facility] Ref Provider: LENKA STEINER Quality: Adequate Order Provider: LENKA STEINER PROCEDURES: Arterial Report: Ankle - Brachial Index Doppler exam. INDICATIONS: Remote hx: S/P litho/stent Rt SFA 06/27/21; stents LCIA/EIA, Lt SFA. HISTORY: Hyperlipidemia. Former smoker. COMPARISONS: The previous exam was completed on 05/07/23. Compared to prior there is no significant change on the right, milddisease progression on the left. MEASUREMENTS: Right Value Left Value Rt Brachial Pressure 189 mmHg Lt Brachial Pressure 180 mmHg Rt INSURANCE LICENSING SUPERVISOR Pressure 180 mmHg Lt INSURANCE LICENSING SUPERVISOR Pressure 162 mmHg Rt DPA Pressure 181 mmHg Lt DPA Pressure 145 mmHg Rt PT ALEX Resting 0.95 Lt PT ALEX Resting 0.86 Rt DP ALEX Resting 0.96 Lt DP ALEX Resting 0.77 - FINDINGS: Right Posterior Tibial Artery Analysis: The posterior tibial waveform is triphasic. Right Anterior Tibial Artery Analysis: The anterior tibial waveform is triphasic. Left Posterior Tibial Artery Analysis: The posterior tibial waveform is triphasic. Left Anterior Tibial Artery Analysis: The anterior tibial waveform is biphasic. CONCLUSIONS: 1. Ankle-brachial index of 0.9-1.3 is within normal limits in the rightlower extremity. 2. Ankle-brachial index of 0.8-0.9 is consistent with mild occlusivearterial disease in the left lower extremity. ATTESTATION: I have reviewed and interpreted the pertinent images and measurements ofthis study. I attest to the conclusions in the final report that is provided above. Electronically Signed By: Lenka Steiner MD 09/01/2024 9:23:09 AM CYBER INCIDENT HANDLER Lenka Steiner MD IMG US PROCEDURES Final Result * CTA Abdominal Aorta And Bilateral Iliofemoral Runoff (02/23/2024 9:08 AM CDT) Anatomical Region Laterality Modality Body Bilateral Computed Tomogra phy 02/24/2024 7:33 PM CDT Narrative 02/24/2024 8:03 PM CDT EXAM DESCRIPTION: CTA ABDOMINAL AORTA AND BILATERAL ILIOFEMORAL RUNOFF REASON FOR STUDY: PVD Atherosclerosis of [place] artery of both lower extremities with intermittent claudication TECHNIQUE: CTA of the abdominal aorta with bilateral lower extremity runoff was performed without and with intravenous contrast using helical scanning technique. Precontrast and arterial images were obtained of the lower extremities. Images reviewed with soft tissue and bone windows. Reconstructed coronal and sagittal MPR images reviewed. All images stored on PACS. 3D MIP images rendered on scanning unit and reviewed at time of interpretation. Automated exposure control was used as a dose optimization technique for this examination. CONTRAST TYPE/DOSE: 100mL of IOVERSOL 350 MG IODINE/ML INTRAVENOUS SYRINGE injected via intravenous COMPARISON: 11/01/2020 FINDINGS: VASCULATURE: ABDOMINAL AORTA: The aorta is nonaneurysmal. Moderate calcified and noncalcified plaque is noted. Celiac artery is patent without significant stenosis. Mild superior mesenteric artery stenosis. Renal arteries are patent without significant stenosis. The inferior mesenteric artery is patent. PELVIC VASCULATURE: Moderate right mid common iliac artery stenosis. Mild right common iliac artery stenoses are noted elsewhere. Mild stenosis of the origin of the right external iliac artery. The artery is noted to be small in caliber with mild stenoses seen elsewhere. Mild right internal iliac artery stenosis. Mild proximal left common iliac artery stenosis. Patent left common iliac artery stent. Patent left external iliac artery stent with mild distal in stent stenosis. The left internal iliac artery demonstrates extensive atherosclerosis. RIGHT LOWER EXTREMITY VASCULATURE: Mild right common femoral artery stenosis. A possible small intimal flap is noted which is present since 2020 (233). The profunda is patent without significant stenosis. Mild stenosis of the origin of the superficial femoral artery. Mild-moderate proximal stenosis. Patent distal superficial femoral artery stent. Mild in stent stenosis. Popliteal artery is patent. Mild stenosis above the knee. Mild stenosis below the knee. Prominent atherosclerotic plaques are noted within the proximal anterior tibial artery. There is evidence of segmental occlusions within the mid and distal artery. The plantar artery does appear to be patent. Mild stenosis of the TP trunk. The peroneal artery is patent in followed to the ankle. Posterior tibial artery is patent and followed to the plantar artery. LEFT LOWER EXTREMITY VASCULATURE: Mild left common femoral artery stenosis. Profunda is patent. Mild stenosis of the origin of the superficial femoral artery. Patent distal superficial femoral artery stent. Moderate mid in stent stenosis. Mild popliteal artery stenoses. Prominent atherosclerotic plaque within the proximal anterior tibial artery. Scattered segmental occlusions are noted within the proximal artery the mid and distal artery appears to be patent and followed to the dorsalis pedis artery. Moderate stenosis of the TP trunk. Peroneal artery is patent without significant stenosis and followed to the ankle. Posterior tibial artery is patent without significant stenosis and followed to the plantar artery. ABDOMEN/PELVIS: LOWER CHEST: Likely mild emphysema. Mild bibasilar atelectasis. LIVER: Liver is normal in size. No definite liver lesion. GALLBLADDER: Partially distended BILE DUCTS: No gross biliary ductal dilatation. SPLEEN: Spleen is normal in size PANCREAS: The pancreas is normal in size without significant peripancreatic stranding or main ductal dilatation. ADRENALS: Normal. KIDNEYS/URINARY TRACT: The kidneys are normal in size. Symmetric in enhancement. A left renal cyst is noted measuring approximately 4.9 cm. The urinary bladder is distended. Mild anterior bladder wall thickening, likely due to under distension GI: Significant sigmoid diverticulosis. No gross CT evidence of acute diverticulitis. Stool throughout the colon which appears nondilated. Scattered diverticular noted elsewhere as well. The appendix is nondilated. Thickening of the distal esophagus is likely due to under distension. Thickening of the stomach is likely due to under distension. The small bowel is nondilated. PERITONEUM: No free air. No ascites is seen. Subcentimeter mesenteric lymph nodes are noted. Prominent periportal lymph nodes are likely reactive. RETROPERITONEUM: Subcentimeter retroperitoneal lymph nodes are noted. No inguinal lymphadenopathy is seen. REPRODUCTIVE: Small fat containing right inguinal hernia MUSCULOSKELETAL: No acute findings. OTHER: No other abnormality. IMPRESSION: 1. Right lower extremity: Mild-moderate proximal superficial femoral artery stenosis. Patent distal superficial femoral artery stent with minimal in stent stenosis. Mild popliteal artery stenoses. Prominent atherosclerotic plaques with anterior tibial artery with scattered segmental occlusions. Three-vessel runoff. 2. Moderate right common iliac artery stenosis. 3. Left lower extremity: Patent superficial femoral artery stent with moderate mid in stent stenosis. Segmental occlusions within the proximal anterior tibial artery. Moderate stenosis of the TP trunk. Three-vessel runoff. 4. Patent left common iliac artery stent. Patent left external iliac artery stent with mild in stent stenosis. THIS IS AN ELECTRONICALLY VERIFIED FINAL REPORT 02/24/2024 8:03 PM - Electronically signed by Juan A RIVAS T: Report ID: [id number] Reading Location: [id number] Procedure Note Juan A Obrien MD - 02/24/2024 EXAM DESCRIPTION: CTA ABDOMINAL AORTA AND BILATERAL ILIOFEMORAL RUNOFF REASON FOR STUDY: PVD Atherosclerosis of [place] artery of both lower extremities withintermittent claudication TECHNIQUE: CTA of the abdominal aorta with bilateral lower extremityrunoff was performed without and with intravenous contrast using helicalscanning technique. Precontrast and arterial images were obtained of the lower extremities. Images reviewed with soft tissue and bone windows. Reconstructed coronal and sagittal MPR images reviewed. All images storedon PACS. 3D MIP images rendered on scanning unit and reviewed at time of interpretation. Automated exposure control was used as a doseoptimization technique for this examination. CONTRAST TYPE/DOSE: 100mL of IOVERSOL 350 MG IODINE/ML INTRAVENOUSSYRINGE injected via intravenous COMPARISON: 11/01/2020 FINDINGS: VASCULATURE: ABDOMINAL AORTA: The aorta is nonaneurysmal. Moderate calcified and noncalcified plaque is noted. Celiac artery is patent without significant stenosis. Mild superior mesenteric artery stenosis. Renal arteries are patent without significant stenosis. The inferior mesenteric artery is patent. PELVIC VASCULATURE: Moderate right mid common iliac artery stenosis. Mild right common iliac artery stenoses are noted elsewhere. Mild stenosis of the origin of theright external iliac artery. The artery is noted to be small in caliber withmild stenoses seen elsewhere. Mild right internal iliac artery stenosis. Mild proximal left common iliac artery stenosis. Patent left common iliac artery stent. Patent left external iliac artery stent with mild distal in stent stenosis. The left internal iliac artery demonstrates extensive atherosclerosis. RIGHT LOWER EXTREMITY VASCULATURE: Mild right common femoral artery stenosis. A possible small intimal flap is noted which is present [id number]). The profunda is patent without significant stenosis. Mildstenosis of the origin of the superficial femoral artery. Mild-moderate proximal stenosis. Patent distal superficial femoral artery stent. Mild in stent stenosis. Popliteal artery is patent. Mild stenosis above the knee.Mild stenosis below the knee. Prominent atherosclerotic plaques are notedwithin the proximal anterior tibial artery. There is evidence of segmental occlusions within the mid and distal artery. The plantar artery doesappear to be patent. Mild stenosis of the TP trunk. The peroneal artery ispatent in followed to the ankle. Posterior tibial artery is patent and followedto the plantar artery. LEFT LOWER EXTREMITY VASCULATURE: Mild left common femoral arterystenosis. Profunda is patent. Mild stenosis of the origin of the superficialfemoral artery. Patent distal superficial femoral artery stent. Moderate mid in stent stenosis. Mild popliteal artery stenoses. Prominentatherosclerotic plaque within the proximal anterior tibial artery. Scattered segmental occlusions are noted within the proximal artery the mid and distal artery appears to be patent and followed to the dorsalis pedis artery. Moderate stenosis of the TP trunk. Peroneal artery is patent without significant stenosis and followed to the ankle. Posterior tibial artery is patentwithout significant stenosis and followed to the plantar artery. ABDOMEN/PELVIS: LOWER CHEST: Likely mild emphysema. Mild bibasilar atelectasis. LIVER: Liver is normal in size. No definite liver lesion. GALLBLADDER: Partially distended BILE DUCTS: No gross biliary ductal dilatation. SPLEEN: Spleen is normal in size PANCREAS: The pancreas is normal in size without significantperipancreatic stranding or main ductal dilatation. ADRENALS: Normal. KIDNEYS/URINARY TRACT: The kidneys are normal in size. Symmetric in enhancement. A left renal cyst is noted measuring approximately 4.9 cm.The urinary bladder is distended. Mild anterior bladder wall thickening,likely due to under distension GI: Significant sigmoid diverticulosis. No gross CT evidence of acute diverticulitis. Stool throughout the colon which appears nondilated. Scattered diverticular noted elsewhere as well. The appendix isnondilated. Thickening of the distal esophagus is likely due to under distension. Thickening of the stomach is likely due to under distension. The smallbowel is nondilated. PERITONEUM: No free air. No ascites is seen. Subcentimeter mesenteric lymph nodes are noted. Prominent periportal lymph nodes are likelyreactive. RETROPERITONEUM: Subcentimeter retroperitoneal lymph nodes are noted.No inguinal lymphadenopathy is seen. REPRODUCTIVE: Small fat containing right inguinal hernia MUSCULOSKELETAL: No acute findings. OTHER: No other abnormality. IMPRESSION: 1. Right lower extremity: Mild-moderate proximal superficial femoralartery stenosis. Patent distal superficial femoral artery stent with minimal in stent stenosis. Mild popliteal artery stenoses. Prominentatherosclerotic plaques with anterior tibial artery with scattered segmental occlusions. Three-vessel runoff. 2. Moderate right common iliac artery stenosis. 3. Left lower extremity: Patent superficial femoral artery stent with moderate mid in stent stenosis. Segmental occlusions within the proximal anterior tibial artery. Moderate stenosis of the TP trunk. Three-vessel runoff. 4. Patent left common iliac artery stent. Patent left external iliacartery stent with mild in stent stenosis. THIS IS AN ELECTRONICALLY VERIFIED FINAL REPORT 02/24/2024 8:03 PM - Electronically signed by Juan A Obrien M.D. AG T: Report ID: [id number] Reading Location: [id number] Lenka Steiner MD IMG CT PROCEDURES Final Result * Hepatitis C antibody (03/11/2023 2:01 PM CDT) Hep C Ab Nonreactive Nonreactive AGUEDA CORARL Comment: Interpretive Data Nonreactive: Antibodies to HCV not detected. Does NOT exclude the possibility of recent exposure to HCV. Equivocal: Equivocal for HCV antibodies. Supplemental molecular testing will be automatically performed to determine infection status in accordance with current CDC screening recommendations. Reactive: Positive for HCV antibodies. This may represent current or past HCV infection. Supplemental molecular testing will be automatically performed to determine current infection status in accordance with current CDC screening recommendations. Interpretive data was last revised on 2019. 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
--- OUTSIDE RECORDS SUMMARY | 2024-11-01 09:03 | XMS_ITS | Clinical Summary ---
Author Organization [facility] Address [address] [place] [id number] Care Team Providers Care Cryptologic Linguist Name Role Phone Raven Steiner MD Primary Care Provider [phone] Social History Tobacco Use Types Packs/Day Years Used Date Smoking Tobacco: Never Assessed Sex and Gender Information Value Date Recorded Sex Assigned at Not on file Legal Sex Male 3:20 PM CDT Gender Identity Not on file Sexual Orientation Not on file Plan of Treatment Health Maintenance Due Date Last Done Comments Hepatitis C 1963 DTaP, Tdap and Td Vaccines ( 1 - Tdap) 1966 Zoster Vaccines (1 of 2) 1997 RSV Immunization or 60+ Years (1 - 1-dose 75+ series) 2022 COVID-19 Vaccine (3 - 2023-2 5 season) 2024 10/08/2020, 09/17/2020 Pneumococcal Vaccine: 65+ Years Completed 11/12/2020, 06/01/2019 Meningococcal B Vaccine Aged Out No l onger eligible based on patient's age to complete this topic Meningococcal Vaccine Aged Out No milvia vickie eligible based on patient's age to complete this topic RSV Immunizations Under 20 Months Aged Out No longer eligible b ased on patient's age to complete this topic Insurance [facility] Care Teams Cryptologic Linguist Relationship Specialty Start Date End Date Raven Steiner MD PCP - General INTERNAL MEDICINE 03/03/21
--- OUTSIDE RECORDS SUMMARY | 2024-11-01 09:03 | XMS_ITS | Referral Summary ---
Author Organization [facility] [address] Address [address] [place] [address] Care Team Providers Care Real Estate Investor Name Role Phone Wellington Wong MD, Mavis Bishop Unavailable Raven Steiner MD Primary Care Provider Encounters Date Type Department Care Team Description 10/27/[address] [facility] Medical Group Vascular and Vein Surgery [facility] [address] [place] [phone] Asha Cardona MA 10/25/2024 8:45 AM CDT Office Visit 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 Discharge Disposition: Discharge to home or self care 10/24/2024 10:35 AM CDT - 10/24/2024 11:59 PM CDT Hospital Encounter [facility] Medical Office Building [address] [place] [address] 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 (Primary Dx); Other specified symptoms and signs involving the circulatory and respiratory systems 10/18/2024 2:30 PM CDT Office Visit [facility] [address] [place] [phone] Ce Cast NP Adjustment insomnia (Primary Dx); Alcohol use; Weight loss 10/09/2024 Telephone [facility] [address] [place] [phone] Raven Steiner MD Med Refill 09/06/2024 Orders Only [facility] Group Vascular at [address] [place] [address] Lenka Steiner MD 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 Medical Group Vascular at [address] [place] [address] Lenka Steiner MD Peripheral vascular disease (Primary Dx); Mixed hyperlipidemia 08/30/2024 9:00 AM MOLD TECHNICIAN Ancillary Procedure [facility] Vascular and Vein Surgery at [address] [place] [address] Peripheral vascular disease; Other specified symptoms and signs involving the circulatory and respiratory systems 08/30/2024 9:00 AM MOLD TECHNICIAN Ancillary Procedure [facility] Vascular and Vein Surgery at [address] [place] [address] 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 08/30/2024 8:00 AM MOLD TECHNICIAN Ancillary Procedure [facility] Vascular and Vein Surgery at [address] [place] [address] Peripheral vascular disease from Last 3 Months Allergies Active Allergy Reactions Criticality Noted Date [...] Problem Noted Date Diagnosed Date Atherosclerosis of tribal ar romi of left lower extremity with intermittent claudication 10/27/2024 Adjustment insomnia 10/19/2024 Alcohol use 10/19/2024 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 Gastroesophageal reflux disease without esophagi tis 11/05/2020 Atherosclerosis of tribal ar romi of both lower extremities with intermittent claudication 12/21/2019 Overview (12/21/2019): Added automatically from request for surgery [id number] Assessment & Plan (10/27/2024 1:46 PM CDT): [...] (06/06/2021): Added automatically from request for surgery [id number] Encounter for surgical after care following surgery of circulatory system 10/30/2020 11/25/2021 Immunizations Immunization Administration Dates Next Due Influenza, Quad, Adjuvantated, Intramuscular ,06/03/2022 Influenza, Quadrivalent, Hig h Dose, Preservative Free, Intrr 05/01/2021 Influenza, Trivalent, Adjuvanted, Intramuscular 04/05/2024 Pfizer SARS-CoV-2 Monovalent Vaccination (12+ Yrs) PURPLE 10/08/2020,09/17/2020 Pneumococcal Conjugate PCV 13 06/01/2019 Pneumococcal Polysaccharide PPV23 11/12/2020 ZOSTER Recombinant 04/05/2024,06/03/2022 Social History Tobacco Use Types Packs/Day Years Used Date Smoking Tobacco: Former Cigarettes 2 30 1 973 - 1992 Smokeless Tobacco: Never Tobacco Cessation:Counseling Given: Not [...] on file Sexual Orientation Not on file Last Filed Vital Signs Vital Sign Reading Time Taken Comments Blood Pressure 149/92 10/25/2024 8:45 AM CDT Pulse 78 10/25/2024 8:45 AM CDT Temperature 36.7 C (98.1 F) 10/18/2024 2:02 PM CDT Respiratory Rate 18 06/27/2021 6:55 PM MOLD TECHNICIAN Oxygen Saturation 96% 10/25/2024 8:45 AM CDT Inhaled Oxygen Concentration - - Weight 79.4 kg (175 lb) 10/25/2024 8:45 AM CDT Height 170.2 cm (5' 7 ) 10/25/2024 8:45 AM CDT Body Mass Index 27.41 10/25/2024 8:45 AM CDT Plan of Treatment Upcoming Encounters Date Type Department Care Team (Latest Contact Info) Description 11/02/2024 9:30 AM CDT Hospital Encounter [facility]iac [facility] [place] [address] [place] [address] Lenka Steiner MD [address] [place] [address] Atherosclerosis of tribal artery of left lower extremity with intermittent claudication 11/02/2024 9:30 AM CDT - 11/02/2024 10:30 AM CDT Surgery [facility] [address] [place] [address] Lenka Steiner MD [address] [place] [address] LEFT LOWER EXTREMITY ANGIOGRAM WITH POSSIBLE INTERVENTION Medical Devices Implanted Type Area Vascular Sonographer Device Identifier Shelf Expiration Date Model / Serial / Lot [employer] [id number] Zilver Ptx 6mm 100mm 125cm Otw Preload Delivery System Self - S00 - [id number] Implanted:Qty: 1 on 12/29/2019 by Mavis Paris Jr., MD at [facility] Stent Left: Femoral [employer] [id number] 08/01/2021 [id number] / 00 / [id number] [place] [employer] Syed [id number] Express Ld Tandem Architecture 7mm 57mm 75cm Otw Radiopaque - S00 - [id number] Implanted:Qty: 1 on 12/29/2019 by Mavis Paris Jr., MD at [facility] Stent Left: Femoral [place] [employer]ed [id number] 07/13/2021 [id number] / 00 / [id number] Medtronic Inc [id number] Everflex 8mm 60mm 80cm 3 Wave Peak Self Expand Flexible Spiral - [id number] Implanted:Qty: 1 on 12/02/2020 by Abhilash Hernandez MD at [facility] Stent Left: Iliac Medtronic Inc 08/09/2022 [id number] / / [id number] Description:Left external il iac Medtronic Inc Everflex Entrust 6mm 120mm 120cm Self Expand Triaxial Low Profile - [id number] Implanted:Qty: 1 on 06/27/2021 by Abhilash Hernandez MD at 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 US ALEX Schedule Routine, Read Routine (OP Routine) 10/24/2024 1:09 PM CDT 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 US DUPLEX SCAN AORTA, IVC ILIAC COMPLETE Schedule Routine, Read Routine (OP Routine) 08/30/2024 9:38 AM MOLD TECHNICIAN Peripheral vascular disease Other specified symptoms and signs involving the circulatory and respiratory systems VL US ARTERIAL DUPLEX LOWER EXTREMITY BILATERAL Schedule Routine, Read Routine (OP Routine) 08/30/2024 9:37 AM MOLD TECHNICIAN Peripheral vascular disease US ALEX Schedule Routine, Read Routine (OP Routine) 08/30/2024 9:11 AM MOLD TECHNICIAN 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 CTA ABDOMINAL AORTA AND BILATERAL ILIOFEMORAL RUNOFF Schedule Routine, Read Routine (OP Routine) 02/23/2024 9:08 AM CDT Atherosclerosis of tribal artery of both lower extremities with intermittent [...] Study Date: 10/24/2024 11:53:04 AM Gender: M Industrial Manufacturing Technician: Miguelina Burnette Provider: LENKA STEINER Quality: Adequate [...] Study Date: 10/24/2024 11:53:04 AM Gender: M Industrial Manufacturing Technician: Miguelina Burnette Provider: LENKA STEINER Quality: Adequate [...] 8:19:31 AM CDT us Lenka Steiner MD IMG US PROCEDURES Final Result * US Arterial Duplex Lower Extremity Left Limited (10/24/2024 1:19 PM CDT) Anatomical Region Laterality Modality Vascular Left Ultrasound 10/24/2024 11:3 2 AM CDT Narrative 10/25/2024 8:19 AM CDT Lower Extremity Arterial Duplex Report Patient Name: MAVIS ZIEGLER J : 1945 (79y 4m) Gender: M Study Date: 10/24/2024 11:32:17 AM Ht(Inch): Wt(Lb): BSA: Industrial Manufacturing Technician: Miguelina Burnette Provider: LENKA STEINER Quality: Adequate Ref Provider: LENKA STEINER PROCEDURES: Arterial Report: A non-invasive vascular imaging study of the left lower extremity arteries was performed using B-mode ultrasound, color flow, and spectral Doppler. A non-invasive vascular imaging study of the left lower extremity arteries and stent was performed using B-mode ultrasound, color flow, and spectral Doppler. INDICATIONS: I70.213 Atherosclerosis of tribal arteries of extremities with intermittent claudication, bilateral legs. HISTORY: 12-29-2019: s/p left BA/Stent SFA, BA/Stent left CARLIE and EIA 12-02-2020: s/p Left EIA angioplasty and stenting Previous Smoker, PVD, Increasing LLE Claudication. COMPARISONS: The previous exam was completed on 08-30-2024. MEASUREMENTS: Left Value Lt WOOD CUT ENGRAVER Prx PSV 201.00 cm/sec Lt Profunda Prx [...] Date: 10/24/2024 11:32:17 AM Ht(Inch): Wt(Lb): BSA: Industrial Manufacturing Technician: Miguelina Burnette Order Provider: LENKA STEINER Quality: Adequate Ref Provider: LENKA STEINER PROCEDURES: Arterial Report: A non-invasive vascular imaging study of the left lowerextremity arteries was performed using B-mode ultrasound, color flow, and spectralDoppler. A non-invasive vascular imaging study of the left lower extremity arteriesand stent was performed using B-mode ultrasound, color flow, and spectral Doppler. INDICATIONS: I70.213 Atherosclerosis of tribal arteries of extremities withintermittent claudication, bilateral legs. HISTORY: 12-29-2019: s/p left BA/Stent SFA, BA/Stent left CARLIE and EIA 12-02-2020: s/p Left EIA angioplasty and stenting Previous Smoker, PVD, Increasing LLE Claudication. COMPARISONS: The previous exam was completed on 08-30-2024. MEASUREMENTS: Left Value Lt WOOD CUT ENGRAVER Prx PSV 201.00 cm/sec Lt Profunda Prx [...] Study Date: 10/24/2024 11:15:00 AM Gender: M Industrial Manufacturing Technician: Miguelina Burnette RDUT, RVT Ref Provider: LENKA STEINER Quality: Adequate Order Provider: LENKA STEINER PROCEDURES: Arterial Report: Ankle - Brachial Index Doppler exam. INDICATIONS: Increasing LLE claudication, Peripheral Vascular Disease, Unspecified, and Atherosclerosis of [place] Arteries of Extremities with Intermittent Claudication, Bilateral Leg. HISTORY: Previous Smoker, LLE claudication, PVD 06-27-2021: s/p BA/Stent Right SFA 12-02-2020: s/p BA/Stent Left EIA 12-29-2019: s/p BA/Stent Left SFA, BA/Stent Left CARLIE and EIA - COMPARISONS: The previous exam was completed on 08-30-2024. Previous ALEX: Rt=0.96 Lt=0.86. MEASUREMENTS: Right Value Left Value Rt Brachial Pressure 184 mmHg Lt Brachial Pressure 176 mmHg Rt SENIOR REACTOR OPERATOR Pressure 181 mmHg Lt SENIOR REACTOR OPERATOR Pressure 152 mmHg Rt DPA Pressure 166 [...] Study Date: 10/24/2024 11:15:00 AM Gender: M Industrial Manufacturing Technician: Miguelina Burnette RDMS, RVT Ref Provider: LENKA STEINER Quality: Adequate Order Provider: LENKA STEINER PROCEDURES: Arterial Report: Ankle - Brachial Index Doppler exam. INDICATIONS: Increasing LLE claudication, Peripheral Vascular Disease, Unspecified, and Atherosclerosis of [place] Arteries of Extremities with IntermittentClaudication, Bilateral Leg. HISTORY: Previous Smoker, LLE claudication, PVD 06-27-2021: s/p BA/Stent Right SFA 12-02-2020: s/p BA/Stent Left EIA 12-29-2019: s/p BA/Stent Left SFA, BA/Stent Left CARLIE and EIA - COMPARISONS: The previous exam was completed on 08-30-2024. Previous ALEX: Rt=0.96 Lt=0.86. MEASUREMENTS: Right Value Left Value Rt Brachial Pressure 184 mmHg Lt Brachial Pressure 176 mmHg Rt SENIOR REACTOR OPERATOR Pressure 181 mmHg Lt SENIOR REACTOR OPERATOR Pressure 152 mmHg Rt DPA Pressure 166 [...] Aorta, IVC Iliac Complete (08/30/2024 9:38 AM MOLD TECHNICIAN) LV EF % CONS SCIMAGE Anatomical Region Laterality Modality Vascular N/A Ultrasound 08/30/2024 8:08 AM MOLD TECHNICIAN Narrative 09/01/2024 11:56 AM MOLD TECHNICIAN Vascular & Vein Surgery [address] [place] [address] Abdominal Aortic Duplex Ultrasound Report Patient Name: MAVIS ZIEGLER Alli : 1945 Study Date: 08/30/2024 8:08:53 AM Gender: M Industrial Manufacturing Technician: Location: [facility] Ref Provider: LENKA STEINER Quality: [...] cm/sec Stent Dst PSV 141.00 cm/sec Stent [place] Outflow PSV 135.00 cm/sec - MEASUREMENTS: FINDINGS: [...] By: Lenka Steiner MD 09/01/2024 11:54:52 AM MOLD TECHNICIAN Procedure Note Lenka Steiner MD - 09/01/2024 Vascular & Vein Surgery [address] [place] [address] Abdominal Aortic Duplex Ultrasound Report Patient Name: MAVIS ZIEGLER J : 1945 Study Date: 08/30/2024 8:08:53 AM Gender: M Industrial Manufacturing Technician: Location: [facility] Provider: LENKA STEINER Quality: Adequate Order Provider: [...] cm/sec Stent Dst PSV 141.00 cm/sec Stent [place] Outflow PSV 135.00 cm/sec - MEASUREMENTS: FINDINGS: [...] By: Lenka Steiner MD 09/01/2024 11:54:52 AM MOLD TECHNICIAN Lenka Steiner MD IM US PROCEDURES Final Result * US Arterial Duplex Lower Extremity Bilateral (08/30/2024 9:37 AM MOLD TECHNICIAN) LV EF % CONS SCIMAGE Anatomical Region Laterality Modality Vascular Bilateral Ultrasound 08/30/2024 8:42 AM MOLD TECHNICIAN Narrative 09/01/2024 9:30 AM MOLD TECHNICIAN Vascular & Vein Surgery [address] [place] [address] Lower Extremity Arterial Duplex Report Patient Name: MAVIS ZIEGLER J : 1945 (79y 2m) Gender: M Study Date: 08/30/2024 08:42:15 AM Ht(Inch): Wt(Lb): BSA: Industrial Manufacturing Technician: Location: [facility] Order Provider: LENKA STEINER Quality: [...] 05/07/23. MEASUREMENTS: Right Value Left Value Rt WOOD CUT ENGRAVER Dst PSV 182.00 cm/sec Lt WOOD CUT ENGRAVER Dst PSV 136.00 cm/sec Rt Profunda Prx [...] SFA Location Lt SFA Rt Stent Prx [place] PSV 81.00 cm/sec Lt Stent Prx [place] PSV 83.00 cm/sec Rt Stent Prx PSV 98.00 cm/sec Lt Stent Prx PSV 370.00 cm/sec Rt Stent Mid PSV 80.00 cm/sec Lt Stent Mid PSV 93.00 cm/sec Rt Stent Dst PSV 67.00 cm/sec Lt Stent Dst PSV 76.00 cm/sec Rt Stent Dst [place] PSV 65.00 cm/sec Lt Stent Dst [place] PSV 69.00 cm/sec - FINDINGS: Right: Biphasic [...] By: Lenka Steiner MD 09/01/2024 9:29:19 AM MOLD TECHNICIAN Procedure Note Lenka Steiner MD - 09/01/2024 Vascular & Vein Surgery [address] [place] [address]. [place] [address] Lower Extremity Arterial Duplex Report Patient Name: MAVIS ZIEGLER J : 1945 (79y 2m) Gender: M Study Date: 08/30/2024 08:42:15 AM Ht(Inch): Wt(Lb): BSA: Industrial Manufacturing Technician: SANJAY Location: [facility] Order Provider: LENKA STEINER [...] on 05/07/23. MEASUREMENTS: Right Value LeftValue Rt WOOD CUT ENGRAVER Dst PSV 182.00 cm/sec Lt WOOD CUT ENGRAVER Dst GFQ832.00 cm/sec Rt Profunda Prx PSV 96.00 cm/sec Lt Profunda Prx YBH218.00 cm/sec Rt SFA Prx PSV 114.00 cm/sec Lt SFA Prx VIO283.00 cm/sec Rt SFA Dst PSV 52.00 cm/sec Lt SFA Mid PSV 65.00cm/sec Rt Pop Prx PSV 85.00 cm/sec Lt SFA Dst PSV 69.00cm/sec Rt Pop Dst PSV 71.00 cm/sec Lt Pop Prx PSV 74.00cm/sec Rt TP Trunk PSV 76.00 cm/s Lt Pop Dst PSV 45.00cm/sec Rt Ant Tibial Prx PSV 38.00 cm/sec Lt TP Trunk FPI424.00 cm/s Rt Post Tibial Prx PSV 95.00 [...] Rt SFA Location LtSFA Rt Stent Prx [place] PSV 81.00 cm/sec Lt Stent Prx [place] PSV83.00 cm/sec Rt Stent Prx PSV 98.00 cm/sec Lt Stent Prx WBX755.00 cm/sec Rt Stent Mid PSV 80.00 cm/sec Lt Stent Mid PSV93.00 cm/sec Rt Stent Dst PSV 67.00 cm/sec Lt Stent Dst PSV76.00 cm/sec Rt Stent Dst [place] PSV 65.00 cm/sec Lt Stent Dst [place] PSV69.00 cm/sec - FINDINGS: Right: Biphasic arteries [...] By: Lenka Steiner MD 09/01/2024 9:29:19 AM MOLD TECHNICIAN us Lenka Steiner MD IMG US PROCEDURES Final Result * US ALEX (08/30/2024 9:11 AM MOLD TECHNICIAN) LV EF % CONS SCIMAGE Anatomical Region Laterality Modality Vascular N/A Ultrasound 08/30/2024 7:55 AM MOLD TECHNICIAN Narrative 09/01/2024 9:24 AM MOLD TECHNICIAN Vascular & Vein Surgery [address] [place] [address] Lower Extremity Arterial Doppler Report Patient Name: MAVIS ZIEGLER J : 1945 Study Date: 08/30/2024 7:55:00 AM Gender: M Industrial Manufacturing Technician: Vale Ott RVT Location: [facility] Ref Provider: [...] mmHg Lt Brachial Pressure 180 mmHg Rt SENIOR REACTOR OPERATOR Pressure 180 mmHg Lt SENIOR REACTOR OPERATOR Pressure 162 mmHg Rt DPA Pressure 181 [...] By: Lenka Steiner MD 09/01/2024 9:23:09 AM MOLD TECHNICIAN Procedure Note Lenka Steiner MD - 09/01/2024 Vascular & Vein Surgery [address] [facility] [place] [address] Lower Extremity Arterial Doppler Report Patient Name: MAVIS ZIEGLER Alli : 1945 Study Date: 08/30/2024 7:55:00 AM Gender: M Industrial Manufacturing Technician: Vale Ott RVT Location: [facility] Ref Provider: [...] mmHg Lt Brachial Pressure 180 mmHg Rt SENIOR REACTOR OPERATOR Pressure 180 mmHg Lt SENIOR REACTOR OPERATOR Pressure 162 mmHg Rt DPA Pressure 181 [...] By: Lenka Steiner MD 09/01/2024 9:23:09 AM MOLD TECHNICIAN us Lenka Steiner MD IMG US PROCEDURES Final Result * CTA Abdominal Aorta And Bilateral Iliofemoral Runoff (02/23/2024 9:08 AM CDT) Anatomical Region Laterality Modality Body Bilateral Computed Tomogra phy 02/24/2024 7:33 PM CDT Narrative 02/24/2024 8:03 PM CDT EXAM DESCRIPTION: CTA ABDOMINAL AORTA AND BILATERAL ILIOFEMORAL RUNOFF REASON FOR STUDY: PVD Atherosclerosis of tribal artery of both lower extremities with intermittent [...] by Juan A RIVAS T: Report ID: [id number] Reading Location: [place] [address] Procedure Note Juan A Obrien MD - 02/24/2024 EXAM DESCRIPTION: CTA ABDOMINAL AORTA AND BILATERAL ILIOFEMORAL RUNOFF REASON FOR STUDY: PVD Atherosclerosis of tribal artery of both lower extremities withintermittent claudication [...] intimal flap is noted which is present [id number]). The profunda is patent without significant [...] A Obrien M.D. AG T: Report ID: [id number] Reading Location: [id number] Lenka Steiner MD IMG CT PROCEDURES Final Result * Hepatitis C antibody (03/11/2023 2:01 PM CDT) Hep C Ab Nonreactive Nonreactive [facility] CORRAL Comment: Interpretive Data Nonreactive: Antibodies to HCV [...] MICROBIOLOGY - GENERAL ORDERABLES Final Result [facility] [address] [facility] [place] [address] * Colonoscopy (11/15/2017) Anatomical Region Laterality Modality Other 11/15/2017 Historical Provider MD ENDOSCOPY PROCEDURES Aleta l Result from Last 3 Months or Most Recently Relevant to Health Maintenance Insurance MEDICARE [facility] MEDICARE [facility] FEDERAL MEDICARE [facility] Care Teams Real Estate Investor Relationship Specialty Start Date End Date Raven Steiner MD [address] [place] [address] PCP - General Internal Medicine 10/30/20 Mavis Paris Jr., MD [address] [place] [address] Consulting Physician General Surgery 12/29/19
[2024-11-01 09:13] LABS: Basophils Absolute Auto 0.1 K/mm3 (0.0-0.1); Basophils Percent Auto 0.4 % (0.2-1.2); Hematocrit 38.8 % (42.0-52.0); Hemoglobin 12.4 g/dL (14.0-18.0); Immature Granulocyte Absolute 0.06 K/mm3 (0.00-0.031); Immature Granulocyte Percent A 0.4 % (0-0.5); Lymphocytes Absolute Auto 1.46 K/mm3 (0.9-3.2); Lymphocytes Percent Auto 10.7 % (18.3-44.2); Mean Corpuscular Volume 87.6 fl (80-100); Mean Platelet Volume 9.6 fl (7.4-10.4); Monocytes Absolute Auto 1.5 K/mm3 (0.1-0.6); Monocytes Percent Auto 10.9 % (2.6-8.5); Neutrophils Absolute Auto 10.6 K/mm3 (1.3-6.7); Neutrophils Percent Auto 77.6 % (45.5-73.1); Platelet Count Result 269 k/mm3 (150-375); Red Blood Count 4.43 M/mm3 (4.6-6.20); Red Cell Distribution Width 15.1 % (11.5-14.5); White Blood Count 13.6 K/mm3 (4.5-10.0)
[2024-11-01 09:21] LABS: Alanine Aminotransferase 96 U/L (6-50); Albumin Level 4.8 g/dL (3.5-5.1); Alkaline Phosphatase 70 U/L (38-126); Anion Gap 17 mmol/L (4-12); Aspartate Amino Transferase 206 U/L (17-59); Bilirubin,Total 0.7 mg/dL (0.2-1.3); Blood Urea Nitrogen 22 mg/dL (9-20); Calcium 8.6 mg/dL (8.4-10.2); Carbon Dioxide 23 mmol/L (22-30); Chloride 99 mmol/L (98-107); Estimated CRCL calculation 45 ml/min; Estimated Glomerular Filt Rate > 60; Glucose 106 mg/dL (65-110); Potassium 3.8 mmol/L (3.4-5.0); Sodium 139 mmol/L (137-145)
[2024-11-01 09:23] LABS: Prothrombin Time 13.4 Seconds (11.1-14.7)
[2024-11-01 09:37] VITALS: BP 137/79; PULSE 88; RESP 13; O2SAT 97
[2024-11-01 09:38] LABS: Ethanol 169 mg/dL (<10)
[2024-11-01 11:17] VITALS: BP 153/86; PULSE 87; RESP 16; O2SAT 97
== END 2024-11-01 11:18 | disposition home or self-care (01) ==
PROVIDERS: Emergency Provider Emergency Medicine; PCP Internal Medicine
DX: S00.83XA Contusion of other part of head, initial encounter (principal); R74.01 Elevation of levels of liver transaminase levels; F10.20 Alcohol dependence, uncomplicated; Y90.6 Blood alcohol level of 120-199 mg/100 ml; I45.10 Unspecified right bundle-branch block; J43.9 Emphysema, unspecified; M47.812 Spondylosis without myelopathy or radiculopathy, cervical region; M43.22 Fusion of spine, cervical region; Z79.01 Long term (current) use of anticoagulants; W19.XXXA Unspecified fall, initial encounter
CPT/HCPCS: 36415; 70450; 70486; 72125; 80053; 82077; 85025; 85610; 93005; 96374; 99284; J2060